=== PATIENT | male | born 1980 | race Two or more races ===

== ENCOUNTER 2024-06-27 12:47 | Emergency (ER) | payer MEDICAID, SELFPAY ==
--- NOTE | 2024-06-27 12:52 | EKG_ITS ---
[facility] Test Date: 2024-06-27 Pat Name: COLE MONROE Department: Room: - Gender: Male Collections Representative: : 1980 Requested By: Joe Nick Order Number: [id number] Reading MD: Joe Nick Measurements Intervals [place] Rate: 66 P: 49 MO: 144 QRS: 3 QRSD: 71 T: 32 QT: 393 QTc: 414 Interpretive Statements SINUS RHYTHM POSSIBLE RIGHT VENTRICULAR CONDUCTION DELAY [RSR (QR) IN V1/V2] No previous ECG available for comparison /store/S0/[id number].pdf
[2024-06-27 12:56] VITALS: BP 128/88; PULSE 84; RESP 20; TEMP 36.1; O2SAT 96
--- NOTE | 2024-06-27 12:57 | XR_ITS ---
Examination: CT brain head without contrast. 2-D sagittal coronal reconstructions Date and time of exam:June 27, 2024 1350 hours INDICATIONS: Onset left-sided facial numbness today CTDI: vol (mGy):50.3 DLP: (mGycm):962 Technique: Multiple CT axial sections of the brain have been obtained, 5 mm slice thickness. Contrast has not been administered. 2-D sagittal, coronal reconstructions have been obtained Low dose protocols were performed. One or more of the following dose reduction techniques were used; automated exposure control, adjustment of the mA and/or KV according to patient size, use of iterative reconstruction technique. Findings: No significant ventricular enlargement. Intra-axial or extra-axial hemorrhage density is not seen. No mass effect or midline shift Basal cisterns are not remarkable. Fourth ventricle is midline. Cranial vault intact. Impression: Negative for acute hemorrhage, mass effect or midline shift As clinically warranted, MRI brain without contrast follow-up would best assess for demyelinating disease, acute ischemic change
[2024-06-27 13:24] LABS: Basophils # (Auto) 0.1 Thou/mm3 (0.0-0.2); Basophils % (Auto) 1 % (0-2.5); Eosinophils # (Auto) 0.3 Thou/mm3 (0.0-0.5); Eosinophils % (Auto) 2 % (0-10); Hematocrit 45.4 % (41.0-53.0); Hemoglobin 15.2 g/dL (13.5-16.0); Immature Granulocytes % (Auto) 1 % (0-0); Immature Granulocytes Auto 0.12 Thou/mm3 (0.00-0.00); Lymphocytes # (Auto) 3.4 Thou/mm3 (1.0-4.8); Lymphocytes % (Auto) 30 % (10-50); Mean Corpuscular HGB Conc 33.5 g/dl (31.0-37.0); Mean Corpuscular Hemoglobin 28.4 pg (25.0-35.0); Mean Corpuscular Volume 85 fL (80-100); Monocytes # (Auto) 0.8 Thou/mm3 (0.0-0.8); Monocytes % (Auto) 7 % (0-12); Neutrophils # (Auto) 6.5 Thou/mm3 (1.8-7.7); Neutrophils % (Auto) 58 % (37-80); Nucleated Red Blood Cell % 0 /100 WBC (0); Platelet Count 236 Thou/mm3 (140-440); RDW Standard Deviation 40.9 fL (35.1-43.9); Red Blood Count 5.36 Miln/mm3 (4.50-5.90); White Blood Count 11.2 Thou/mm3 (3.8-10.6)
[2024-06-27 13:39] LABS: Alanine Aminotransferase 75 U/L (10-49); Albumin, Serum 4.4 gm/dL (3.5-5.0); Albumin/Globulin Ratio 1.8 (1.2-2.2); Alkaline Phosphatase 88 U/L (46-116); Anion Gap 8 (7-16); Aspartate Amino Transferase 37 U/L (0-34); BUN/Creatinine Ratio 24 Ratio (12-20); Bilirubin,Total 0.4 mg/dL (0.3-1.2); Blood Urea Nitrogen 22 mg/dL (9-23); Calcium 9.9 mg/dL (8.3-10.6); Calcium (Corrected) 9.9 mg/dL (8.5-10.1); Carbon Dioxide 26.5 mMol/L (20.0-31.0); Chloride 105 mMol/L (98-107); Creatinine (Component) 0.9 mg/dL (0.6-1.3); Globulin 2.4 gm/dL (2.3-3.5); Glucose 119 mg/dL (74-106); Osmolality,Calculated 281 (275-295); Potassium 4.4 mMol/L (3.4-5.1); Sodium 139 mMol/L (136-145); Total Protein 6.8 gm/dL (5.7-8.2); Troponin I < 0.002 ng/mL (0.0-0.045); eGFR > 60 See Note
[2024-06-27] MEDS: IBUPROFEN TAB 400 MG TABLET 800 MG PO (14:30)
[2024-06-27] MEDS: LIDOCAINE 5% 1 PATCH 2 PATCH TOP (14:30)
--- NOTE | 2024-06-27 15:05 | PD.EDCHEST ---
ED Chest Pain RME/HPI General Chief Complaint: Chest Pain Stated Complaint: CHEST PAIN, SOB, LEFT SIDED NUMBNESS, JEFFERS, N/V Time Seen by Provider: 06/27/24 12:50 Arrival date/time: 06/27/24 12:47 This section includes all my notes and documentations, including HPI, PE, and ED course. Joe Snow MD HPI: 44-year-old male here to be evaluated with sudden chest pain just prior to arrival after having a heated and mild argument with another resident at a local rehabilitation facility. He also reports severe headache and numbness and tingling. No speech or visual impairment. No loss of power in arms or legs. No other complaints. ROS: All negative except as documented in HPI. Physical Exam: General: Alert and oriented. Appears anxious. Eyes: Conjunctivae and lids clear. EOMI. PERRL. ENT: No nasal congestion. Pharynx normal. Tympanic membrane normal bilaterally. Neck: Supple. No carotid bruit. No JVD. Heart: RRR. Lungs: No respiratory distress. Good air movement. No rhonchi, wheezing, rales. Chest: Palpation of the anterior chest reproduces his pain. Abdomen: Soft and nontender. Legs: No clubbing, cyanosis, edema. Skin: Warm and dry. Neuro: Alert and oriented X 3. Cranial Nerves II-XII grossly intact. No peripheral motor deficits. I reviewed all diagnostic test results. My interpretation of the EKG is sinus rhythm with no acute ST?T changes. My review of the head CT report is no acute findings. Blood tests unremarkable, including negative troponin. At this point, diagnoses include stress/anxiety reaction. Treatment here included ibuprofen. Significant improvement noted. Recommended more outpatient cardiac workup. Based on my best medical judgment, made decision no further evaluation or treatment indicated at this time. Patient understands and agrees to the discharge instructions customized and printed, see below. Discharge instructions from Dr. Snow: 1. After extensive evaluation, there is no life-threatening condition.? Such as stroke or brain tumor or heart attack. 2. Your symptoms may be due to anxiety/stress reaction. 3. Take ibuprofen/Tylenol as needed. 4. See a private doctor on 06/28/2024. To make sure there is no serious underlying heart condition, ask to help you get more tests for your heart that cannot be done here in the ER.? Such as Holter Monitor (cardiac monitoring at home from a day to even a month), heart stress test (on treadmill or with medication), echocardiogram (imaging of your heart structures), heart catherization (checking for blockages in your heart arteries), and a referral to see a Java Web Services Developer. 5. Seek immediate medical care with worsening or with any concerns.?? Joe Snow MD Related Data Allergies Allergy/AdvReac Type Severity Reaction Status Date / Time No Known Allergies Allergy Verified 06/27/24 12:50 Course Quality Measures none Orders Category Date Time Status EKG (ED ONLY) *Do not use* NOW Care 06/27/24 12:[address] head/brain wo con Stat Exams 06/27/24 12:57 Completed EKG (ED Only) Stat Exams 06/27/24 12:52 Draft CBC Stat Lab 06/27/24 13:02 Completed CMP [Comprehensive Metabolic Panel] Stat Lab 06/27/24 13:02 Completed Magnesium Stat Lab 06/27/24 13:02 Completed Troponin I Stat Lab 06/27/24 13:02 Completed Ibuprofen Tab [Motrin Tab] Med 06/27/24 12:56 Discontinued 800 mg PO X1 ONE Lidocaine 5% Patch Med 06/27/24 12:56 Discontinued 2 patch TOP X1 ONE Vital Signs Vital signs: Vital Signs Temperature 97.0 F 06/27/24 12:56 Pulse Rate 84 06/27/24 12:56 Respiratory Rate 20 06/27/24 12:56 Blood Pressure 128/88 H 06/27/24 12:56 Pulse Oximetry (%) 96 06/27/24 12:56 Oxygen Delivery Method Room Air 06/27/24 12:56 Chest Pain Patient data External records reviewed:: None Clinical information provided by:: patient Social determinants that could affect healthcare access:: substance use Patient has the following chronic illnesses:: Substance abuse How is presenting disease/condition affected by chronic disease/condition?: exacerbated by Evaluation data The following diagnostics were reviewed and interpreted by me:: lab results, radiology exam(s) and EKG tracing(s) Lab and/or radiology exams considered but not ordered:: None Interpretation Summary: Anxiety/stress reaction Medications / Prescriptions Medications or Prescriptions considered but not ordered:: None Medication administrations:: Medication Administration History Discontinued Medications Ibuprofen (Ibuprofen Tab 400 Mg Tablet) 800 mg PO X1 ONE Stop: 06/27/24 12:57 Last Admin: 06/27/24 14:30 Dose: 800 mg Documented By: NATE Lidocaine (Lidocaine 5% 1 Patch) 2 patch TOP X1 ONE Stop: 06/27/24 12:57 Last Admin: 06/27/24 14:30 Dose: 2 patch Documented By: NATE Ibuprofen Consultations Consultation(s) initiated? (list below): No Diagnosis Chest Pain Differential Diagnosis: stable angina, unstable angina pectoris, atypical chest pain, st elevation myocardial infarction, costochondritis and other (Anxiety, stress) Most likely diagnosis given after review of the tests above:: Anxiety/stress reaction Admission Indicated Admission indicated?: not indicated Explain why admission is indicated or not indicated:: Admission criteria not met Admission Request Was there a request for admission?: No Disposition Plan Disposition Plan: Discharge Discharge Attestation Discharge Attestation: The patient and all family members were given an opportunity to ask questions and understood the discharge instructions. Discharge instructions specifically effects, indications for sooner follow up or return to the emergency department, and the expected course of current diagnosis. Patient condition: Stable Discharge Plan Plan Patient Disposition: HOME (Self Care) Problem List Clinical Impression: Stress reaction Patient/Caregiver Discharge Instructions Discharge Activity: activity as tolerated Education Materials: ED Anxiety Reaction Additional Instructions: Discharge instructions from Dr. Snow: 1. After extensive evaluation, there is no life-threatening condition.? Such as stroke or brain tumor or heart attack. 2. Your symptoms may be due to anxiety/stress reaction. 3. Take ibuprofen/Tylenol as needed. 4. See a private doctor on 06/28/2024. To make sure there is no serious underlying heart condition, ask to help you get more tests for your heart that cannot be done here in the ER.? Such as Holter Monitor (cardiac monitoring at home from a day to even a month), heart stress test (on treadmill or with medication), echocardiogram (imaging of your heart structures), heart catherization (checking for blockages in your heart arteries), and a referral to see a Java Web Services Developer. 5. Seek immediate medical care with worsening or with any concerns.?? Print Language: Yakut Stand Alone Forms: Kamla Award Info., Patient Portal Info Letter
== END 2024-06-27 14:58 | disposition home or self-care (01) ==
LOC: SERX 15:08
PROVIDERS: Emergency Provider Emergency Medicine; PCP Family Medicine
DX: F43.9 Reaction to severe stress, unspecified (principal); R20.0 Anesthesia of skin; R94.31 Abnormal electrocardiogram [ECG] [EKG]
CPT/HCPCS: 36415; 70450; 80053; 83735; 84484; 85025; 93005; 99284; Z7610; A9270

== ENCOUNTER 2024-06-29 09:34 | Inpatient (IN) | payer MEDICAID, SELFPAY ==
[2024-06-29] VITALS (8 sets, daily range): BP systolic 107–121; BP diastolic 57–90; PULSE 54–76; RESP 15–98; TEMP 36.3–36.8; O2SAT 96–97; BMI 29.4
--- NOTE | 2024-06-29 09:43 | EDNOTE_ITS ---
Neuro Symptoms Deficit-RME/HPI General Chief Complaint: General Adult/Misc Complain Stated Complaint: numbness left side of body, dizzy, headache, Time Seen by Provider: 06/29/24 09:44 Arrival date/time: 06/29/24 09:34 RME / HPI RME / HPI Narrative: This section includes all my notes and documentations, including HPI, PE, and ED course.? Joe Snow MD HPI: 44 year old male with history of hypertension presents to the ED for evaluation of left sided numbness and weakness beginning this morning. Patient reports he was evaluated here yesterday for headache and numbness. However, reports in the last 20 minutes developed left facial numbness and left upper extremity weakness. Denies falls or injuries. No other complaints reported. ROS: All negative except as documented in HPI. Physical Exam: General:? Alert and oriented.? No acute distress when remaining still.?? Eyes:? Conjunctivae and lids clear.? PERRL. EOMI. ENT:? No nasal congestion.? Neck:? Supple.? Heart:? RRR.? Lungs:? No respiratory distress.? Good air movement.? No rhonchi, wheezing, rales.?? Abdomen:? Soft and nontender.?? Legs:? No clubbing, cyanosis, edema.? Skin:? Warm and dry.?? Neuro:? Alert and oriented X 3.??CN 2-12 grossly normal. No obvious peripheral motor deficits on my exam. I reviewed all diagnostic test results. My interpretation of the EKG is?sinus rhythm (63 bpm) with nonspecific ST-T changes. My interpretation of the chest x-ray is no acute findings. My review of the Head CT report is negative for acute hemorrhage, mass effect or midline shift. My review of the Head/neck CTA report shows no significant neck arterial stenoses, no cerebral large vessel arterial occlusions or thrombus. Blood tests and urine tests?unremarkable. At this point, diagnoses include?stroke-like symptoms. Treatment here included?ASA. Remained stable. I discussed the case with teleneurologist Dr. Delgado and our hospitalist.? About the presentation and exam and diagnostics and treatments here.? And need of further care in the hospital.? Will accept the patient. Joe Snow MD Related Data Previous Rx's ?Medication ?Instructions ?Recorded acetaminophen 325 mg tablet 650 mg (2 x 325 mg) PO Q6H PRN 06/30/24 pain 30 days #60 tabs atorvastatin 80 mg tablet 80 mg PO HS 30 days #30 tabs 06/30/24 diphenhydramine HCl 25 mg capsule 25 mg PO Q6H PRN Hea dache 10 days 06/30/24 (Banophen) #30 caps prochlorperazine maleate 5 mg 10 mg (2 x 5 mg) PO Q6H PRN 06/30/24 tablet Headache 10 days #30 tabs duloxetine 30 mg capsule,delayed 30 mg PO QDAY 30 days #30 caps 07/01/24 release (Cymbalta) Allergies Allergy/AdvReac Type Severity Reaction Status Date / Time No Known Allergies Allergy Verified 06/29/24 09:36 Review of Systems Review of Systems Systems Reviewed: All systems reviewed, normal except as documented Past Medical History Past Medical History CARDIAC: Positive Hypertension; Negative Congestive Heart Failure RESPIRATORY: Negative Chronic Obstructive Pulmonary Disease (COPD) GENITOURINARY: Negative Renal Disease MUSCULOSKELETAL: Positive Musculoskeletal Disorders (right wrist/hand fracture) ENDOCRINE: Negative Diabetes Mellitus Type 1 or Diabetes Mellitus Type 2 Social History SMOKING STATUS: Current every day smoker ED Exam Narrative Physical exam: As noted in HPI Course Quality Measures Suspected type of Stroke: Non Acute Last know well: unknown Tenecteplase given: Reason(s) TPA not given: Outside the time window not given stroke Orders Category Date Time Status Bedside Blood Glucose NOW Care 06/29/24 09:44 Completed COVID-19 Screening Questionnaire NOW Care 06/29/24 10:51 Completed Motor Equipment Sergeant NOW Care 06/29/24 09:44 Completed Continuous Pulse Oximetry NOW Care 06/29/24 09:44 Completed Decision to Admit X1 Care 06/29/24 10:51 Completed EKG (ED ONLY) *Do not use* NOW Care 06/29/24 09:44 Completed In and Out Catheter NEEDED Care 06/29/24 09:44 Completed Insert IV NOW Care 06/29/24 09:44 Completed NIH Stroke Scale now Care 06/29/24 09:44 Completed NPO NOW Care 06/29/24 09:44 Completed Nurse Swallow Screen x1 Care 06/29/24 09:44 Completed Consult to Neurology / Tele-Neurology Routine Cons 06/29/24 09:[address] angio stroke protocol Stat Exams 06/29/24 09:[address] stroke protocol Stat Exams 06/29/24 09:44 Completed EKG (ED Only) Stat Exams 06/29/24 09:44 Draft XR chest 1V portable Stat Exams 06/29/24 09:44 Completed Alcohol, Blood Medical Stat Lab 06/29/24 09:52 Completed Arterial Blood Gas Stat Lab 06/29/24 10:36 Completed CBC Stat Lab 06/29/24 09:52 Completed Comprehensive Metabolic Panel Stat Lab 06/29/24 09:52 Completed Drug Screen,Urine Stat Lab 06/29/24 10:30 Completed Magnesium Stat Lab 06/29/24 09:52 Completed Partial Thromboplastin Time Stat Lab 06/29/24 09:50 Completed Prothrombin Time with INR Stat Lab 06/29/24 09:50 Completed Troponin I Stat Lab 06/29/24 09:52 Completed Labetalol IV [Trandate IV] Med 06/29/24 09:44 Discontinued 10 mg IV Q15M PRN Ondansetron Inj [Zofran Inj] Med 06/29/24 09:44 Discontinued 4 mg IV Q4HR PRN Sodium Chloride 0.9% 1000 ml [Ns] 1,000 ml Med 06/29/24 09:45 Discontinued IV Q10H Oxygen Delivery NOW RT 06/29/24 09:44 Completed Vital Signs Vital signs: Vital Signs Temperature 97.8 F 06/29/24 10:22 Pulse Rate 76 06/29/24 10:22 Respiratory Rate 19 06/29/24 10:22 Blood Pressure 119/86 H 06/29/24 10:22 Pulse Oximetry (%) 96 06/29/24 10:22 Oxygen Delivery Method Room Air 06/29/24 10:22 Pulse ox is 96% on room air which is adequate. Neuro Symptoms / Deficit MDM Narrative MDM Narrative:: Jocelyn Zavala am scribing for and in the presence of Dr. Snow. Patient data External records reviewed:: [facility] previous records (I reviewed ED visit on 06/27/2024) Clinical information provided by:: patient Social determinants that could affect healthcare access:: substance use Patient has the following chronic illnesses:: substance use hypertension How is presenting disease/condition affected by chronic disease/condition?: uneffected by Evaluation data The following diagnostics were reviewed and interpreted by me:: lab results, radiology exam(s) and EKG tracing(s) (My interpretation of the EKG is: Sinus rhythm (63 bpm) with nonspecific ST-T changes. Joe Snow MD) Lab and/or radiology exams considered but not ordered:: None Interpretation Summary: Head CT report reviewed and is negative for acute hemorrhage, mass effect or midline shift. Head/neck CTA report reviewed and shows no significant neck arterial stenoses, n o cerebral large vessel arterial occlusions or thrombus. Medications / Prescriptions Medications or Prescriptions considered but not ordered:: None Medication administrations:: Medication Administration History Discontinued Medications Acetaminophen (Acetaminophen 325 Mg Tablet) 650 mg PO Q6H PRN PRN Reason: Fever >101.5 Stop: 07/29/24 11:40 Acetaminophen (Acetaminophen 325 Mg Tablet) 650 mg PO Q6H PRN PRN Reason: PAIN SCALE 1-3 (mild Stop: 07/29/24 11:40 Last Admin: 07/04/24 15:04 Dose: 650 mg Documented By: Admin: 07/04/24 08:11 Dose: 650 mg Documented By: Admin: 07/04/24 02:07 Dose: 650 mg Documented By: Admin: 06/30/24 13:54 Dose: 650 mg Documented By: Admin: 06/29/24 23:25 Dose: 650 mg Documented By: SUSI Hydrocodone Bitart/Acetaminophen (Hydrocodone/Apap 5/325 Tablet) 1 tab PO Q6HR PRN PRN Reason: PAIN SCALE 4-10(Mod-Sev Stop: 07/05/24 23:42 Last Admin: 07/05/24 09:53 Dose: 1 tab Documented By: Admin: 07/05/24 02:23 Dose: 1 tab Documented By: Admin: 07/03/24 20:04 Dose: 1 tab Documented By: Admin: 07/03/24 11:00 Dose: 1 tab Documented By: Admin: 07/03/24 04:03 Dose: 1 tab Documented By: Admin: 07/02/24 22:13 Dose: 1 tab Documented By: Admin: 07/02/24 16:19 Dose: 1 tab Documented By: Admin: 07/02/24 05:03 Dose: 1 tab Documented By: Admin: 07/01/24 21:42 Dose: 1 tab Documented By: Admin: 07/01/24 08:39 Dose: 1 tab Documented By: Admin: 07/01/24 00:12 Dose: 1 tab Documented By: SUSI Aspirin (Aspirin 325 Mg Tablet) 325 mg PO X1 ONE Stop: 06/29/24 11:49 Last Admin: 06/29/24 13:15 Dose: 325 mg Documented By: HARDIK Aspirin (Aspirin Ec 81 Mg Tabec) 81 mg PO QDAY TINO Stop: 07/30/24 08:59 Last Admin: 07/05/24 08:47 Dose: 81 mg Documented By: Admin: 07/04/24 08:12 Dose: 81 mg Documented By: Admin: 07/03/24 09:02 Dose: 81 mg Documented By: Admin: 07/02/24 08:21 Dose: 81 mg Documented By: Admin: 07/01/24 08:39 Dose: 81 mg Documented By: Admin: 06/30/24 08:47 Dose: 81 mg Documented By: YAO Atorvastatin Calcium (Atorvastatin Calcium 10 Mg Tablet) 80 mg PO HS [facility] Stop: 07/29/24 20:59 Last Admin: 07/03/24 20:04 Dose: 80 mg Documented By: Admin: 07/02/24 22:00 Dose: 80 mg Documented By: Admin: 07/01/24 21:41 Dose: 80 mg Documented By: Admin: 06/30/24 20:21 Dose: 80 mg Documented By: SUSI Comments: [id number] Admin: 06/29/24 21:30 Dose: 80 mg Documented By: SUSI Atorvastatin Calcium (Atorvastatin Calcium 20 Mg Tablet) 80 mg PO HS [facility] Stop: 07/29/24 20:59 Last Admin: 07/04/24 21:22 Dose: 80 mg Documented By: SUSI Clopidogrel Bisulfate (Clopidogrel Bisulfate 75 Mg Tablet) 300 mg PO X1 ONE Stop: 07/03/24 16:39 Last Admin: 07/03/24 17:05 Dose: 300 mg Documented By: STANLEY Clopidogrel Bisulfate (Clopidogrel Bisulfate 75 Mg Tablet) 75 mg PO QDAY TINO Stop: 08/03/24 08:59 Last Admin: 07/05/24 08:47 Dose: 75 mg Documented By: Admin: 07/04/24 08:12 Dose: 75 mg Documented By: ANJALI Diphenhydramine HCl (Diphenhydramine 25 Mg Capsule) 25 mg PO Q6H PRN PRN Reason: Headache Stop: 07/29/24 12:14 Last Admin: 06/29/24 23:29 Dose: 25 mg Documented By: SUSI Heparin Sodium (Porcine) (Heparin Sod Inj 5000 Unit/Ml Vial) 5,000 unit SC Q8HR TINO Stop: 07/14/24 05:59 Last Admin: 07/01/24 13:41 Dose: 5,000 unit Documented By: KS Co-signed By: RADHA Admin: 07/01/24 05:30 Dose: 5,000 unit Documented By: SUSI Co-signed By: ERIN Admin: 06/30/24 21:02 Dose: 5,000 unit Documented By: SUSI Co-signed By: Admin: 06/30/24 13:55 Dose: 5,000 unit Documented By: GE Co-signed By: FLORENCIO Admin: 06/30/24 05:28 Dose: 5,000 unit Documented By: SUSI Co-signed By: Heparin Sodium (Porcine) (Heparin Sod Inj 5000 Unit/Ml Vial) 5,000 unit SC Q8HR TINO Stop: 07/14/24 05:59 Last Admin: 07/05/24 05:26 Dose: 5,000 unit Documented By: AMARI Co-signed By: ERIN Admin: 07/04/24 21:23 Dose: 5,000 unit Documented By: SUSI Co-signed By: ERIN Admin: 07/04/24 15:04 Dose: 5,000 unit Documented By: ANJALI Co-signed By: ANGELO Admin: 07/04/24 05:05 Dose: 5,000 unit Documented By: JENNIE Co-signed By: WENDY Admin: 07/03/24 21:45 Dose: 5,000 unit Documented By: JENNIE Co-signed By: MAYELA Admin: 07/03/24 13:23 Dose: 5,000 unit Documented By: STANLEY Co-signed By: EFRAÍN Admin: 07/03/24 05:03 Dose: 5,000 unit Documented By: YONATHAN Co-signed By: LEONID Admin: 07/02/24 22:17 Dose: 5,000 unit Documented By: YONATHAN Co-signed By: LEONID Admin: 07/02/24 13:33 Dose: 5,000 unit Documented By: PP Co-signed By: STANLEY Admin: 07/02/24 05:04 Dose: 5,000 unit Documented By: YONATHAN Co-signed By: ZORA Admin: 07/01/24 21:42 Dose: 5,000 unit Documented By: YONATHAN Co-signed By: Sodium Chloride (Ns) 1,000 mls @ 100 mls/hr IV Q10H TINO Stop: 07/29/24 09:44 Last Admin: 06/30/24 21:01 Dose: Not Given Documented By: SUSI Non-Admin Reason: Discontinued Admin: 06/29/24 21:30 Dose: 100 mls/hr Documented By: Infusion: 06/29/24 21:30 Dose: Infused Documented By: Admin: 06/29/24 13:14 Dose: 100 mls/hr Documented By: HARDIK Magnesium Sulfate/Dextrose (Magnesium Sulfate Ivpb) 1 gm in 100 mls @ 100 mls/hr IV X1 ONE Stop: 06/29/24 13:13 Last Admin: 06/29/24 13:15 Dose: 100 mls/hr Documented By: HARDIK Ketorolac Tromethamine (Ketorolac Inj 30 Mg/Ml Vial) 30 mg IVP X1 ONE Stop: 06/30/24 18:42 Last Admin: 06/30/24 20:20 Dose: 30 mg Documented By: SUSI Labetalol HCl (Labetalol Inj 5 Mg/Ml Vial 20 Ml) 10 mg IV Q15M PRN PRN Reason: HYPER Labetalol HCl (Labetalol Inj 5 Mg/Ml Vial 20 Ml) 5 mg IV Q15M PRN PRN Reason: SBP>220 or DBP > 120. Ondansetron HCl (Ondansetron Inj 2 Mg/Ml Inj 2 Ml) 4 mg IV Q4HR PRN PRN Reason: NAUSEA OR VOMITING Stop: 07/29/24 09:43 Prochlorperazine Maleate (Prochlorperazine Maleate 5 Mg Tablet) 10 mg PO Q6H PRN PRN Reason: Headache Stop: 07/29/24 12:14 Last Admin: 06/29/24 23:36 Dose: 10 mg Documented By: SUSI Tramadol HCl (Tramadol Hcl 50 Mg Tablet) 50 mg PO X1 ONE Stop: 07/02/24 01:57 Last Admin: 07/02/24 02:08 Dose: 50 mg Documented By: YONATHAN Patient given IV fluids and ASA Consultations Consultation(s) initiated? (list below): Yes Consultation #1 (Physician, Specialty, Details): I spoke with teleneurologist Dr. Delgado as noted above. Time: 10:18 Consultation #2 (Physician, Specialty, Details): I spoke with resident Dr. Ivory working with Dr. Interiano as noted above. Time: 10:50 Diagnosis Neuro Differential Diagnosis: convulsions, delirium, subarachnoid hemorrhage, peripheral neuropathy, cerebrovascular accident, multiple sclerosis and transient cerebral ischemia Most likely diagnosis given after review of the tests above:: Stroke-like symptoms Admission Indicated Admission indicated?: indicated Explain why admission is indicated or not indicated:: Telehealth neurology recommended admission. Admission Request Was there a request for admission?: Yes Admission Attestation Admission request attestation: Discussed case with Hospitalist service regarding admission. Discussed patients ED course, exam findings, labs, and radiology results. The Hospitalist [agrees] to accept the patient for admission. Disposition Plan Disposition Plan: Admit Discharge Plan Plan Patient Disposition: Admit Acute Care w/in Hospital Disposition Comment: Acute rehab Problem List Clinical Impression: Stroke-like symptoms Patient/Caregiver Discharge Instructions Discharge Activity: as per physical therapy
--- NOTE | 2024-06-29 09:44 | XR_ITS ---
Examination: AP chest single view Technique one AP portable upright chest single view Exam date and time: June 29, 2024 1012 hours INDICATIONS: Onset numbness left side of the body today dizziness headaches shortness of breath FINDINGS: Normal heart size Lungs are clear. The osseous structures are intact IMPRESSION: No active disease
--- NOTE | 2024-06-29 09:44 | XR_ITS ---
Examination: CTA carotids with intravenous contrast CTA brain, head with intravenous contrast. 2-D sagittal, coronal reconstructions. 3-D reconstructions. Exam date and time: June 29, 2024 0957 hours INDICATIONS: Stroke alert, onset focal neurologic deficit beginning this morning, weakness CTDI: vol (mGy) 25.4 DLP: (mGycm) 460 Technique: Multiple CTA axial brain, head carotid images post intravenous contrast injection 75 cc, [id number]. 2-D sagittal, coronal reconstructions. 3-D reconstructions, 3-D post processing including vascular maximum intensity projection images. Low dose protocols were performed. One or more of the following dose reduction techniques were used; automated exposure control, adjustment of the mA and/or KV according to patient size, use of iterative reconstruction technique. Findings: No significant common carotid carotid bifurcation or internal carotid artery stenoses Dominant left vertebral artery with no critical stenoses No cerebral large vessel arterial occlusions, thrombus, dissection or cerebral aneurysm IMPRESSION: No significant neck arterial stenoses No cerebral large vessel arterial occlusions or thrombus
--- NOTE | 2024-06-29 09:44 | XR_ITS ---
Examination: CT brain head without contrast. 2-D sagittal coronal reconstructions Date and time of exam:June 29, 2024 0947 hours INDICATIONS: Left-sided body weakness beginning this morning CTDI: vol (mGy):49.6 DLP: (mGycm):912 Technique: Multiple CT axial sections of the brain have been obtained, 5 mm slice thickness. Contrast has not been administered. 2-D sagittal, coronal reconstructions have been obtained Low dose protocols were performed. One or more of the following dose reduction techniques were used; automated exposure control, adjustment of the mA and/or KV according to patient size, use of iterative reconstruction technique. Findings: No significant ventricular enlargement. Intra-axial or extra-axial hemorrhage density is not seen. No mass effect or midline shift Basal cisterns are not remarkable. Fourth ventricle is midline. Cranial vault intact. Impression: Negative for acute hemorrhage, mass effect or midline shift As clinically warranted, brain MRI MRA without contrast, stroke protocol, would best assess for demyelinating disease, acute ischemic change
--- NOTE | 2024-06-29 09:44 | EKG_ITS ---
[facility] Test Date: 2024-06-29 Pat Name: COLE MONROE Department: Room: - Gender: Male Director Systems: : 1980 Requested By: Joe Nick Order Number: [id number] Reading MD: Joe Nick Measurements Intervals [place] Rate: 63 P: 37 WY: 157 QRS: -19 QRSD: 70 T: 10 QT: 402 QTc: 413 Interpretive Statements SINUS RHYTHM POSSIBLE RIGHT VENTRICULAR CONDUCTION DELAY [RSR (QR) IN V1/V2] Compared to ECG 06/27/2024 14:10:50 No significant changes /store/S0/[id number].pdf
[2024-06-29 10:03] LABS: Basophils # (Auto) 0.1 Thou/mm3 (0.0-0.2); Basophils % (Auto) 1 % (0-2.5); Eosinophils # (Auto) 0.2 Thou/mm3 (0.0-0.5); Eosinophils % (Auto) 3 % (0-10); Hematocrit 45.7 % (41.0-53.0); Hemoglobin 15.3 g/dL (13.5-16.0); Immature Granulocytes % (Auto) 1 % (0-0); Immature Granulocytes Auto 0.09 Thou/mm3 (0.00-0.00); Lymphocytes % (Auto) 37 % (10-50); Mean Corpuscular HGB Conc 33.5 g/dl (31.0-37.0); Mean Corpuscular Volume 84 fL (80-100); Monocytes # (Auto) 0.6 Thou/mm3 (0.0-0.8); Monocytes % (Auto) 8 % (0-12); Neutrophils # (Auto) 4.1 Thou/mm3 (1.8-7.7); Neutrophils % (Auto) 51 % (37-80); Nucleated Red Blood Cell % 0 /100 WBC (0); Platelet Count 215 Thou/mm3 (140-440); RDW Standard Deviation 39.8 fL (35.1-43.9); Red Blood Count 5.47 Miln/mm3 (4.50-5.90); White Blood Count 8.1 Thou/mm3 (3.8-10.6)
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
[2024-06-29 10:23] LABS: Alanine Aminotransferase 68 U/L (10-49); Albumin, Serum 4.7 gm/dL (3.5-5.0); Albumin/Globulin Ratio 2.1 (1.2-2.2); Alcohol, Blood Medical < 10.0 mg/dL (0-10.0); Alkaline Phosphatase 92 U/L (46-116); Anion Gap 6 (7-16); Aspartate Amino Transferase 29 U/L (0-34); BUN/Creatinine Ratio 33 Ratio (12-20); Bilirubin,Total 0.4 mg/dL (0.3-1.2); Blood Urea Nitrogen 26 mg/dL (9-23); Calcium 9.9 mg/dL (8.3-10.6); Calcium (Corrected) 9.9 mg/dL (8.5-10.1); Carbon Dioxide 25.9 mMol/L (20.0-31.0); Chloride 106 mMol/L (98-107); Creatinine (Component) 0.8 mg/dL (0.6-1.3); Globulin 2.2 gm/dL (2.3-3.5); Glucose 100 mg/dL (74-106); Osmolality,Calculated 280 (275-295); Potassium 4.6 mMol/L (3.4-5.1); Sodium 138 mMol/L (136-145); Total Protein 6.9 gm/dL (5.7-8.2); Troponin I < 0.020 ng/mL (0.0-0.045); eGFR > 60 See Note
[2024-06-29 10:28] LABS: INR 0.9 (0.9-1.3); Partial Thromboplastin Time 24.5 Seconds (22.0-36.0); Prothrombin Time 10.4 Seconds (9.0-12.2)
[2024-06-29 10:41] LABS: Base Excess 0 (-3-3); HCO3 25 mEq/L (20-26); Inspired Oxygen, FIO2 21 %; O2 Saturation 98 % (91-98); PCO2 43 mmHg (32.0-48.0); PO2 89 mmHg (83-108); pH, Arterial 7.38 (7.35-7.45)
[2024-06-29 10:57] LABS: Allen Test Performed/OK; Puncture Site Left Radial
[2024-06-29 11:10] LABS: Amphetamine/Methamp Scrn,U Negative (Negative); Barbiturate Screen,Urine Negative (Negative); Benzodiazepines Screen,Urine Negative (Negative); Benzoylecgonine Screen, Ur Negative (Negative); Fentanyl Screen,Urine Negative (Negative); Opiate Screen,Urine Negative (Negative); THC Screen,Urine Negative (Negative)
--- NOTE | 2024-06-29 11:44 | ECHO_ITS ---
Transthoracic Echo Report Ht (in): 67 Wt (lb): 188 Exam Location: Echo Lab Status: Emergency Mail Handler Equipment Operator: Meghan Roy Indications: Procedure Performed: BP: 119 / 86 HR: 76 Technical Quality: Very technically difficult study MEASUREMENTS (Male / Female) Normal Values 2D ECHO LV Diastolic Diameter PLAX 5.2 cm 4.2 - 5.9 / 3.9 - 5.3 cm LV Systolic Diameter PLAX 3.2 cm IVS Diastolic Thickness 0.6 cm 0.6 - 1.0 / 0.6 - 0.9 cm LVPW Diastolic Thickness 0.9 cm 0.6 - 1.0 / 0.6 - 0.9 cm LV Relative Wall Thickness 0.3 LVOT Diameter 1.9 cm Aortic Root Diameter 2.4 cm LA Volume Index 14.0 cm?/m? 16 - 28 cm?/m? M-MODE AV Cusp Separation MM 2.1 cm DOPPLER AV Peak Velocity 121.0 cm/s AV Peak Gradient 5.9 mmHg AV Mean Gradient 3.0 mmHg AV Velocity Time Integral 21.6 cm LVOT Peak Velocity 124.0 cm/s LVOT Peak Gradient 6.2 mmHg LVOT Velocity Time Integral 22.9 cm LVOT Cardiac Index 2429.6 cm?/min?m? AV Area Cont Eq vti 3.0 cm? AV Area Cont Eq pk 2.9 cm? MV Area PHT 3.5 cm? Mitral E Point Velocity 66.7 cm/s Mitral A Point Velocity 67.9 cm/s Mitral E to A Ratio 1.0 LV E' Lateral Velocity 12.6 cm/s Mitral E to LV E' Lateral Ratio 5.3 LV E' Septal Velocity 8.8 cm/s Mitral E to LV E' Septal Ratio 7.6 TR Peak Velocity 201.0 cm/s TR Peak Gradient 16.2 mmHg FINDINGS Left Ventricle Normal left ventricular size, wall thickness, systolic function with no obvious regional wall motion abnormalities. Normal left ventricular diastolic filling pattern for age. The ejection fraction is visually estimated at 65%. Right Ventricle The right ventricle is normal in size and systolic function. Left Atrium The left atrium is normal by two-dimensional, color flow and Doppler imaging with no structural abnormalities, no thrombus formation present. Right Atrium The right atrium is normal by two-dimensional imaging, color flow and Doppler imaging with no structural abnormalities, no thrombus formation present. Atrial Septum The interatrial septum appears normal with no evidence of a shunt. Aorta The aorta is normal by two-dimensional, color flow and Doppler interrogation. Mitral Valve The mitral valve is normal by two-dimensional, color flow and Doppler interrogation. There is no significant mitral valve regurgitation, stenosis or prolapse. Aortic Valve The aortic valve is trileaflet and normal by two-dimensional, color flow and Doppler interrogation. There is no significant aortic valve regurgitation. Tricuspid Valve The tricuspid valve is normal by two-dimensional, color flow and Doppler interrogation. There is no significant tricuspid valve regurgitation. Pulmonic Valve The pulmonic valve is not well visualized. There is no significant pulmonic valve regurgitation. Vessels The pulmonary artery appears normal. The inferior vena cava pulmonary and hepatic veins appear normal. Pericardium The pericardium is normal by two-dimensional imaging. There is no significant pericardial effusion. CONCLUSIONS Indication: R/O CVA with bubble study. Negative bubble study. Normal left ventricular size and function. Approximate EF is 65%. RV is normal in size and systolic function. Carolina Reed (Electronically Signed) Final Date: 01 July 2024 09:45
[2024-06-29] MEDS: SODIUM CHLORIDE 0.9% 1000 ML 1,000 ML 100 ML IV ×2 (13:14→21:30)
[2024-06-29] MEDS: Aspirin 325 MG TABLET PO (13:15)
[2024-06-29] MEDS: Magnesium Sulfate 1 gm Ivpb 1 GM/100 ML BAG IV (13:15)
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
--- NOTE | 2024-06-29 19:26 | PC.NURSE ---
CONTACTS: BROTHER LINDA.Alessio ; KEVIN JESUS
[2024-06-29] MEDS: ATORVASTATIN CALCIUM 10 MG TABLET 80 MG PO (21:30)
[2024-06-29] MEDS: ACETAMINOPHEN 325 MG TABLET 650 MG PO (23:25)
[2024-06-29] MEDS: DiphenhydrAMINE 25 MG CAPSULE PO (23:29)
[2024-06-29] MEDS: PROCHLORPERAZINE MALEATE 5 MG TABLET 10 MG PO (23:36)
[2024-06-30] VITALS (8 sets, daily range): BP systolic 112–123; BP diastolic 66–87; PULSE 56–97; RESP 15–95; TEMP 36.1–36.4; O2SAT 92–100; BMI 29.7
--- NOTE | 2024-06-30 | XR_ITS ---
Examinations: MRI Brain without intravenous contrast. MRA brain without intravenous contrast. MRA carotids without intravenous contrast 3-D vascular reconstructions Date and time of exam: June 30, 2024 0918 hours INDICATIONS: Onset left-sided body weakness diminished vision in the left side today Technique: Multiple axial and sagittal images of the brain have been obtained MRA brain carotid images without contrast obtained, including 3-D postprocessing, vascular maximum intensity projection images Findings: Sellaturcica is not enlarged. The optic chiasm and infundibular stalk are not remarkable. Prepontine and interpeduncular cisterns are not enlarged. No localized enlargement of the medulla or coco. Fourth ventricle and cerebellar tonsils normal in position. Subacute hemorrhage is not seen. Fourth ventricle is midline. Mass in the cerebellopontine angle region is not evident. 7th and 8th nerve complexes exhibits symmetry. Globes are symmetrical with no retro-orbital mass. Increased white matter signal evident numerous punctate foci throughout the white matter Diffusion-weighted images demonstrate no focus of restricted diffusion Mass-effect upon the ventricular system is not identified. MRA carotid images no significant carotid stenoses. MRA brain images no cerebral large vessel occlusions Impression: Negative for acute hemorrhage mass effect or midline shift No acute infarct Multiple punctate foci increased signal throughout the cerebral white matter, demyelinating disease pattern
--- NOTE | 2024-06-30 | XR_ITS ---
Examination: MRI cervical spine, without intravenous contrast. MRI cervical spine , with intravenous contrast. Exam date and time: December 28, 2024 0947 hours INDICATIONS: Neck pain radiating to the left arm left arm weakness today Technique: Multiple axial, sagittal and coronal images of the cervical spine have been obtained with the Siemens high-resolution 1.5 [place] MRI scanner. Images obtained included T2 weighted fat suppressed sagittal sections, TR 3500, TE 46, T2 weighted coronal fat suppressed images, TR 3050, TE 84, T2-weighted transverse fat suppressed images, TR 30-60, TE 63, proton density transverse images, TR 4720, TE 46, and T1 weighted coronal images, TR 560, TE 13. Axial, sagittal and coronal images are obtained post intravenous injection 17 cc gadolinium. Findings: Adequate alignment cervical vertebral bodies No cervical fracture No focal cervical disc protrusion No localized enlargement cervical cord Postcontrast images demonstrate no abnormal osseous epidural or cervical cord enhancement There is mild enhancement in the soft tissue around the posterior spinous processes C7-T1 T2-T3, clinical correlation advised IMPRESSION: No cervical fracture No cervical disc protrusion No cervical abnormal osseous epidural or cord enhancement There is mild enhancement in the soft tissue around the posterior spinous processes C7, T1, T2, T3, consider CT chest with intravenous contrast follow-up
[2024-06-30] MEDS: HEPARIN SOD INJ 5000 UNIT/ML VIAL SC ×3 (05:28→21:02)
[2024-06-30 05:56] LABS: Basophils # (Auto) 0.1 Thou/mm3 (0.0-0.2); Basophils % (Auto) 1 % (0-2.5); Eosinophils # (Auto) 0.3 Thou/mm3 (0.0-0.5); Eosinophils % (Auto) 4 % (0-10); Hematocrit 45.1 % (41.0-53.0); Hemoglobin 14.8 g/dL (13.5-16.0); Immature Granulocytes % (Auto) 1 % (0-0); Immature Granulocytes Auto 0.09 Thou/mm3 (0.00-0.00); Lymphocytes # (Auto) 3.1 Thou/mm3 (1.0-4.8); Lymphocytes % (Auto) 40 % (10-50); Mean Corpuscular HGB Conc 32.8 g/dl (31.0-37.0); Mean Corpuscular Hemoglobin 28.2 pg (25.0-35.0); Mean Corpuscular Volume 86 fL (80-100); Monocytes # (Auto) 0.7 Thou/mm3 (0.0-0.8); Monocytes % (Auto) 9 % (0-12); Neutrophils # (Auto) 3.4 Thou/mm3 (1.8-7.7); Neutrophils % (Auto) 45 % (37-80); Nucleated Red Blood Cell % 0 /100 WBC (0); Platelet Count 210 Thou/mm3 (140-440); RDW Standard Deviation 40.8 fL (35.1-43.9); Red Blood Count 5.25 Miln/mm3 (4.50-5.90); White Blood Count 7.6 Thou/mm3 (3.8-10.6)
[2024-06-30 06:35] LABS: Glucose Estimated Average 105 mg/dL (80-131); Hemoglobin A1C 5.3 % Hgb (4.8-6.0)
[2024-06-30 06:40] LABS: Alanine Aminotransferase 61 U/L (10-49); Albumin, Serum 3.9 gm/dL (3.5-5.0); Albumin/Globulin Ratio 1.7 (1.2-2.2); Alkaline Phosphatase 83 U/L (46-116); Anion Gap 6 (7-16); Aspartate Amino Transferase 24 U/L (0-34); BUN/Creatinine Ratio 29 Ratio (12-20); Bilirubin,Total 0.4 mg/dL (0.3-1.2); Blood Urea Nitrogen 20 mg/dL (9-23); Calcium 9.4 mg/dL (8.3-10.6); Calcium (Corrected) 9.5 mg/dL (8.5-10.1); Carbon Dioxide 24.8 mMol/L (20.0-31.0); Cardiac Risk Estimate 4.4 RATIO (4.0-6.7); Chloride 105 mMol/L (98-107); Cholesterol 218 mg/dL (132-200); Creatinine (Component) 0.7 mg/dL (0.6-1.3); Estimated Creatinine Clearance 142.6 mL/min (>60); Globulin 2.3 gm/dL (2.3-3.5); Glucose 94 mg/dL (74-106); HDL Cholesterol 50 mg/dL (40-60); LDL Cholesterol,Calculated 135 mg/dL (0-130); Magnesium 1.8 mg/dL (1.6-2.6); Osmolality,Calculated 274 (275-295); Phosphorous 4.1 mg/dL (2.4-5.1); Potassium 4.2 mMol/L (3.4-5.1); Sodium 136 mMol/L (136-145); Total Protein 6.2 gm/dL (5.7-8.2); Triglycerides 163 mg/dL (30-150); eGFR > 60 See Note
[2024-06-30] MEDS: ASPIRIN EC 81 MG TABEC PO (08:47)
[2024-06-30] MEDS: ACETAMINOPHEN 325 MG TABLET 650 MG PO (13:54)
--- NOTE | 2024-06-30 15:00 | PC.SS ---
Patient is alert/oriented. Patient was admitted for left hemiparesis. Patient states he resides at a drug rehab program in [place]. Patient worked with PT today and they recommended acute rehab. Patient verbalized he is on probation. Patient asked if I could speak to his pharmaceutical officer to determine if he could be discharged anywhere else other than his rehab facility. SS spoke to pharmaceutical officer, Júnior. She states patient has to stay in [facility]. She will need patient to update her where he is going as well. Patient is not on disability and has no income. Patient states he recently went to [facility] for medical treatment a few months ago. cash management officer Júnior @ [phone] SS will send off PT notes to rehab facilities and contact drug rehab to verify if patient can have HH services as well. Patient states his alt medical decision maker is his ex girlfriend, Marly @ [phone]
--- NOTE | 2024-06-30 15:53 | ESPR_ITS ---
Documentation for date of: 06/30/24 Subjective Subjective Interval history: The patient reported that his weakness has been improving. He reported rt forearm pain as has recent fracture. Denied any new focal neuromuscular weakness, fever, chills, SOB or chest pain. Exam Vital Signs Temp Pulse Resp BP Pulse Ox O2 Del Method 97.6 F 81 20 123/84 96 Room Air 06/30/24 12:00 06/30/24 12:00 06/30/24 12:00 06/30/24 12:00 06/30/24 12:06/30/24 12:00 Narrative Exam GENERAL * Normal appearing adult male, NAD HEENT * NCAT.?RENARD. Oral mucosa is moist. Patent Nares NECK * Supple, nontender, no thyromegaly, no meningismus, no JVD, no step offs CHEST * RRR, no m/g/r * CTAB, no w/r/r. Symmetrical chest rise. No intercostal subcostal retraction * Atraumatic, nontender, no crepitus, symmetrical expansion. ABDOMEN * Soft, flat, nontender. No guarding/rebound tenderness/masses. * Bowel sounds presents EXTREMITIES * Nontender, no cyanosis, no edema * No edema/cyanosis.? SKIN * Warm and dry, no jaundice/rashes. NEUROMUSCULAR * No lumbar or midline, no CVA, no paraspinal muscle spasm or tenderness. * LLE strength 2/5, LUE strength 3/5 * Left side facial drops * left-sided sensation throughout * ROJAS x4, remainder cranial nerve exam intact. PSYCHIATRY * Normal mood and affect, cooperative, no SI or HI or hallucinations. Objective Labs 06/30/24 05:06 06/30/24 05:06 Labs: Laboratory Results - last 24 hr 06/30/24 05:06 WBC 7.6 RBC 5.25 Hgb 14.8 Hct 45.1 MCV 86 MCH 28.2 MCHC 32.8 RDW Std Deviation 40.8 Plt Count 210 Neut % (Auto) 45 Lymph % (Auto) 40 [place] % (Auto) 9 Eos % (Auto) 4 Baso % (Auto) 1 Neut # (Auto) 3.4 Lymph # (Auto) 3.1 [place] # (Auto) 0.7 Eos # (Auto) 0.3 Baso # (Auto) 0.1 Immature Gran # (Auto) 0.09 H Absolute Nucleated RBC 0.00 Immature Gran % 1 H Nucleated RBC % 0 Sodium 136 Potassium 4.2 Chloride 105 Carbon Dioxide 24.8 Anion Gap 6 L BUN 20 Creatinine 0.7 Estim Creat Clear Calc 142.6 eGFR > 60 BUN/Creatinine Ratio [address]ucose [address] Glu mg/dL 105 Hemoglobin A1c 5.3 Calculated Osmolality 274 L Calcium 9.4 Corrected Calcium 9.5 Phosphorus 4.1 Magnesium 1.8 Total Bilirubin 0.4 AST 24 ALT 61 H Alkaline Phosphatase 83 Total Protein 6.2 Albumin 3.9 D Globulin 2.3 Albumin/Globulin Ratio 1.7 Triglycerides 163 H Cholesterol 218 H LDL Cholesterol, Calc 135 H HDL Cholesterol 50 Cholesterol/HDL Ratio 4.4 TSH 2.50 ABG Interpretation ABG results: 06/29/24 10:36 ABG pH 7.38 ABG pCO2 43 ABG pO2 89 ABG HCO3 25 ABG O2 Saturation 98 ABG Base Excess 0 Quality Measures Quality Measures stroke Suspected type of Stroke: Non Acute Tenecteplase given: Reason(s) Tenecteplase not given: Outside the time window not given Rehab services: PT evaluation ordered and Speech Language Pathology eval ordered VTE Prophylaxis: pharmaceutical Antithrombotic by day 2:: ordered Statin ordered: <75 y/o high intensity dose Anticoagulation ordered for A-fib or flutter (current or hx): not indicated Assessment & Plan Assessment Current Active Medications: Generic Name Dose Route Start Last Admin Trade Name Freq PRN Reason Stop Dose Admin Acetaminophen 650 mg 06/29/24 11:41 Acetaminophen 325 Mg Tablet PO 07/29/24 11:40 Q6H PRN Fever >101.5 Acetaminophen 650 mg 06/29/24 11:41 06/30/24 13:54 Acetaminophen 325 Mg Tablet PO 07/29/24 11:40 650 mg Q6H PRN Administration PAIN SCALE 1-3 (mild Aspirin 81 mg 06/30/24 09:00 06/30/24 08:47 Aspirin Ec 81 Mg Tabec PO 07/30/24 08:59 81 mg QDAY TINO Administration Atorvastatin Calcium 80 mg 06/29/24 21:00 06/29/24 21:30 Atorvastatin Calcium 10 Mg Tablet PO 07/29/24 20:59 80 mg HS TINO Administration Diphenhydramine HCl 25 mg 06/29/24 12:10 06/29/24 23:29 Diphenhydramine 25 Mg Capsule PO 07/29/24 12:14 25 mg Q6H PRN Administration Headache Heparin Sodium (Porcine) 5,000 unit 06/30/24 06:00 06/30/24 13:55 Heparin Sod Inj 5000 Unit/Ml Vial SC 07/14/24 05:59 5,000 unit Q8HR TINO Administration Labetalol HCl 5 mg 06/29/24 15:56 Labetalol Inj 5 Mg/Ml Vial 20 Ml IV Q15M PRN SBP>220 or DBP > 120. Ondansetron HCl 4 mg 06/29/24 09:44 Ondansetron Inj 2 Mg/Ml Inj 2 Ml IV 07/29/24 09:43 Q4HR PRN NAUSEA OR VOMITING Prochlorperazine Maleate 10 mg 06/29/24 12:08 06/29/24 23:36 Prochlorperazine Maleate 5 Mg Tablet PO 07/29/24 12:14 10 mg Q6H PRN Administration Headache Plan This is a 44-year-old male with PMHx of HTN, admitted for recurrent left-sided weakness and stroke. TIA Stroke rule out Complex migraine ? Underlying psychotic disorder Reports headache started 2 to 3 days ago associated with sudden onset of left- sided weakness that started this morning. He is on his ED 2 days ago with similar symptoms, at the time. CT head was negative, no further interventions were done. Patient was discharged home. Denies fall, trauma, fever, chills, chest pain, shortness of breath, palpitations, GI or urinary symptoms. NIHSS of 4. Teleneuro was consulted who recommended admission for MRI and continued ASPIRIN. MRI brain negative and MRI Cervical spine negative for mild enhancement in the soft tissue around the posterior spinous processes C7, T1, T2, T3 ? Stroke protocol ? Neurochecks q.4 hours ? Head elevation >30 degrees ? Physical therapy ? Speech and swallow eval ? Seizure precautions ? Continue ASPIRIN 81 mg daily ? Continue ATORVASTATIN 80 mg daily ? Continue DIPHENHYDRAMINE 25 q.6h. ? Continue PROCHLORPERAZINE 10 mg q.6h. PRN ? Pending in-house neurology recommendations ? Lipid panel with hypertriglyceridemia and hypercholesterolemia, with A1c 5.3 and TSH WNL, pending echo ? Permissive hypertension <220/110 ? Continue TYLENOL for pain, fever and headache cocktail for headache ? AVOID narcotics HTN Currently normotensive. Allowing for permissive hypertensive ? Continue permissive HTN as above Health maintenance Diet: Regular diet GI prophylaxis: PROTONIX DVT prophylaxis: SCDs Antibiotics: Not indicated CODE STATUS: Full code Disposition: Pending neuro reccs The patient's management plan was discussed with my attending physician MD Jassi Brizuela MD, PGY2 Attending Provider Attestation/Addendum I reviewed labs, imaging, EKG, home medications and prior available records. Face to face evaluation was performed by me. I have personally examined the patient and discussed assessment and plan with the IM team. I reviewed the resident note and agree with the plan with exceptions as below. CVA symptoms Left upper extremity weakness Left lower extremity weakness Essential hypertension Hypertriglyceridemia Not a tPA candidate Started aspirin and atorvastatin Every 4 hour neurochecks Obtain brain MRI: Showed no acute changes but spine MRI showed possible cervical/thoracic soft tissue abnormalities. Will touch base with neurology to see if the have any clinical significance Follow-up echocardiogram Wound care/dressing change of the right upper extremity Ordered PT: Recommended rehab. Discussed with certified social workers in health care: Patient is on probation. He will need rehab and he cannot leave [facility]
[2024-06-30] MEDS: KETOROLAC INJ 30 MG/ML VIAL IVP (20:20)
[2024-06-30] MEDS: ATORVASTATIN CALCIUM 10 MG TABLET 80 MG PO (20:21)
--- NOTE | 2024-06-30 23:42 | PD.NEUROPROG ---
Documentation for date of: 06/30/24 Subjective Subjective Interval history: Patient was seen in telemetry today, continues to have left lower extremity weakness. Exam - Neurology Vital Signs Temp Pulse Resp BP Pulse Ox O2 Del Method 97.3 F 97 17 120/87 H 100 Room Air 06/30/24 20:00 06/30/24 20:00 06/30/24 20:00 06/30/24 20:00 06/30/24 20:00 06/30/24 20:00 Narrative Exam GENERAL APPEARANCE: Well hydrated, well-nourished in no acute distress. HEENT: Normocephalic, atraumatic, extraocular movements intact. Pupils: Equal reacting to light and accommodation NECK: Supple, no JVD or bruits. CARDIOVASULAR: Heart: S1, S2 heard, regular without S3-S4 or murmur no rubs or gallops. LUNGS/CHEST: Clear to auscultation bilaterally. No rails, rhonchi, or wheezing. Normal inspection. ABDOMEN: Soft, nontender, with normal bowel sounds. No pulsatile masses. No rebound, rigidity, or guarding. Normal inspection and palpation. EXTREMITIES: Normal inspection and palpation. No edema, clubbing or cyanosis. SKIN: Warm and dry without rashes. Normal inspection. MUSCULOSKELETAL: No cervical, thoracic, lumbar or midline bony tenderness. Normal inspection. Right upper extremity: Covered with cast and dressing NEURO: Alert, awake and oriented x3. Cranial nerves: II through XII grossly intact. Speech and language: Normal with no dysarthria or dysphasia. Motor system: Tone and bulk: Normal: Strength: Moves all extremities except the left lower extremity secondary to lack of effort, no pronator drift noted. Deep tendon reflexes: 2+ bilaterally symmetrical. Plantar reflex: Downgoing bilaterally. Sensory system: Intact to all modalities of sensation bilaterally. Coordination: Intact to [id number] and [id number]-[id number] test bilaterally. No ataxia, no dysmetria, or dysdiadochokinesia noted. No intention tremors noted. Gait: Cannot be tested. No signs of meningeal irritation noted. PSYCHIATRIC: Normal mood and affect. Objective Labs 07/01/24 04:45 07/01/24 04:45 Labs: Laboratory Results - last 24 hr 06/30/24 05:06 WBC 7.6 RBC 5.25 Hgb 14.8 Hct 45.1 MCV 86 MCH 28.2 MCHC 32.8 RDW Std Deviation 40.8 Plt Count 210 Neut % (Auto) 45 Lymph % (Auto) 40 [place] % (Auto) 9 Eos % (Auto) 4 Baso % (Auto) 1 Neut # (Auto) 3.4 Lymph # (Auto) 3.1 [place] # (Auto) 0.7 Eos # (Auto) 0.3 Baso # (Auto) 0.1 Immature Gran # (Auto) 0.09 H Absolute Nucleated RBC 0.00 Immature Gran % 1 H Nucleated RBC % 0 Sodium 136 Potassium 4.2 Chloride 105 Carbon Dioxide 24.8 Anion Gap 6 L BUN 20 Creatinine 0.7 Estim Creat Clear Calc 142.6 eGFR > 60 BUN/Creatinine Ratio 29 H Glucose [address] Glu mg/dL 105 Hemoglobin A1c 5.3 Calculated Osmolality 274 L Calcium 9.4 Corrected Calcium 9.5 Phosphorus 4.1 Magnesium 1.8 Total Bilirubin 0.4 AST 24 ALT 61 H Alkaline Phosphatase 83 Total Protein 6.2 Albumin 3.9 D Globulin 2.3 Albumin/Globulin Ratio 1.7 Triglycerides 163 H Cholesterol 218 H LDL Cholesterol, Calc 135 H HDL Cholesterol 50 Cholesterol/HDL Ratio 4.4 TSH 2.50 ABG Interpretation ABG results: 06/29/24 10:36 ABG pH 7.38 ABG pCO2 43 ABG pO2 89 ABG HCO3 25 ABG O2 Saturation 98 ABG Base Excess 0 Assessment & Plan Assessment and plan (1) Stroke-like symptoms: Status: Acute Assessment and plan: Reassurance given to the patient regarding the negative MRI brain for acute stroke. It only showed nonspecific white matter changes, not significant MRI of the cervical spine showed no significant degenerative changes Continue with statin Continue to encourage him to move his left lower extremity
[2024-07-01] VITALS (7 sets, daily range): BP systolic 117–133; BP diastolic 75–84; PULSE 56–77; RESP 15–97; TEMP 36–36.3; O2SAT 95–100; BMI 29.7
[2024-07-01] MEDS: HYDROcodone/APAP 5/325 TABLET 1 TAB PO ×3 (00:12→21:42)
[2024-07-01 05:25] LABS: Basophils # (Auto) 0.1 Thou/mm3 (0.0-0.2); Basophils % (Auto) 1 % (0-2.5); Eosinophils # (Auto) 0.3 Thou/mm3 (0.0-0.5); Eosinophils % (Auto) 4 % (0-10); Hematocrit 45.1 % (41.0-53.0); Immature Granulocytes % (Auto) 1 % (0-0); Immature Granulocytes Auto 0.09 Thou/mm3 (0.00-0.00); Lymphocytes # (Auto) 3.6 Thou/mm3 (1.0-4.8); Lymphocytes % (Auto) 45 % (10-50); Mean Corpuscular HGB Conc 33.3 g/dl (31.0-37.0); Mean Corpuscular Hemoglobin 28.2 pg (25.0-35.0); Mean Corpuscular Volume 85 fL (80-100); Monocytes # (Auto) 0.7 Thou/mm3 (0.0-0.8); Monocytes % (Auto) 9 % (0-12); Neutrophils # (Auto) 3.1 Thou/mm3 (1.8-7.7); Neutrophils % (Auto) 40 % (37-80); Nucleated Red Blood Cell % 0 /100 WBC (0); Platelet Count 211 Thou/mm3 (140-440); RDW Standard Deviation 39.2 fL (35.1-43.9); Red Blood Count 5.32 Miln/mm3 (4.50-5.90); White Blood Count 7.9 Thou/mm3 (3.8-10.6)
[2024-07-01] MEDS: HEPARIN SOD INJ 5000 UNIT/ML VIAL SC ×3 (05:30→21:42)
[2024-07-01 06:00] LABS: Alanine Aminotransferase 53 U/L (10-49); Albumin, Serum 3.9 gm/dL (3.5-5.0); Albumin/Globulin Ratio 1.6 (1.2-2.2); Alkaline Phosphatase 84 U/L (46-116); Anion Gap 9 (7-16); Aspartate Amino Transferase 20 U/L (0-34); BUN/Creatinine Ratio 29 Ratio (12-20); Bilirubin,Total 0.4 mg/dL (0.3-1.2); Blood Urea Nitrogen 23 mg/dL (9-23); Calcium 9.6 mg/dL (8.3-10.6); Calcium (Corrected) 9.7 mg/dL (8.5-10.1); Carbon Dioxide 24.1 mMol/L (20.0-31.0); Chloride 105 mMol/L (98-107); Creatinine (Component) 0.8 mg/dL (0.6-1.3); Estimated Creatinine Clearance 124.7 mL/min (>60); Globulin 2.5 gm/dL (2.3-3.5); Glucose 120 mg/dL (74-106); Magnesium 1.8 mg/dL (1.6-2.6); Osmolality,Calculated 280 (275-295); Phosphorous 5.4 mg/dL (2.4-5.1); Potassium 4.4 mMol/L (3.4-5.1); Sodium 138 mMol/L (136-145); Total Protein 6.4 gm/dL (5.7-8.2); eGFR > 60 See Note
[2024-07-01] MEDS: ASPIRIN EC 81 MG TABEC PO (08:39)
--- NOTE | 2024-07-01 13:53 | PC.SS ---
Patient needs a wheelchair for home. The patient and her family are requesting a wheel chair. Patients diagnosis creates mobility limitations that significantly impairs ability to participate in the patient?s activities of daily living either in their entirety or in a reasonable timeframe in the home and the patient?s mobility limitations cannot be sufficiently resolved with an appropriately fitted cane or walker. Also, the use of a manual wheelchair will sufficiently improve patients ability to participate in the activities of daily living in the home and the patient is willing to use the wheelchair that is provided in the home. The patient has some one in the home that is available, willing and able to provide assistance with the wheelchair.
--- NOTE | 2024-07-01 14:47 | ESDS_ITS ---
<Statement entered by Wendy Purcell MD - 07/05/24 15:41> I reviewed above note and agree with findings and plans. I have also personally examined the patient with medicine team and went over assessment and plan with medical team including video editing intern and resident physician. Planned Discharge Date 07/01/24 DS: Providers Provider Date of admission: 06/29/24 11:41 Primary care physician: Justo Titus MD Admitting Provider: Juan Interiano MD Attending Provider on Admission: Juan Interiano MD Consults: 06/29/24 09:44 Consult to Neurology / Tele-Neurology Routine Comment: Consulting Provider: [facility] 06/29/24 11:47 Referral Physical Therapy Stat Comment: Physician Instructions: Referral Speech Therapy Stat Comment: 06/29/24 14:20 Consult to Neurology / Tele-Neurology Routine Comment: Consulting Provider: Sandeep Cota Attending Provider on DC: Jassi Ivory MD Discharging Provider: Jassi Ivory MD DS: Diagnosis Problem List Completed Was Problem List Reviewed/Reconciled?: Yes Hospital Course Hospital Course Hospital course: The patient is a 44-year-old male PMHx of HTN presented to ED with left-sided weakness and numbness for 30 minutes. Reported a headache that started previous night and gradual onset of worsening left-sided weakness and numbness. He also endorsed diminished vision of the left eye which he reported as some blindness that started around the same time. He was seen in the ED 2 days ago for left- sided weakness only. CT head and CTA head and neck was negative, MRI brain nega tive and MRI Cervical spine negative for mild enhancement in the soft tissue around the posterior spinous processes C7, T1, T2, T3. Neurologist recommended continuing with high intensity statin. The patient was clinically stable to be dishcarged, and discharged back to his facility. Problems: Left sided hemiparesis and hemiplegia, etiology unknown Stroke ruled out Complex migraine HTN Plans: Please follow-up with your PCP within 1 week of discharge. Please follow-up with neurologist Dr. Cota within 2 weeks. You have been started on: -Acetaminophen 650 mg every 6 hourly as needed for pain -Atorvastatin 80 Mg daily at night -Cymbalta 30mg daily to be continued -Diphenhydramine 25 Mg along with prochlorperazine 10 Mg every 6 hourly as needed for headache Continue taking all other medicines as prescribed -Recommended to return back to emergency department if your symptoms persists or worsens The patient's discharge plan was discussed with my attending physician MD Jassi Munoz MD, PGY2 Time Spent with Patient Time attestation: Total time spent providing and/or coordinating discharge services: Greater than 35 minutes Exam Vital Signs Temp Pulse Resp BP Pulse Ox O2 Del Method 96.8 F 61 17 117/75 95 Room Air 07/01/24 12:07/01/24 12:07/01/24 12:07/01/24 12:07/01/24 12:07/01/24 12:00 Narrative Exam GENERAL * Normal appearing adult male, NAD HEENT * NCAT.?RENARD. Oral mucosa is moist. Patent Nares NECK * Supple, nontender, no thyromegaly, no meningismus, no JVD, no step offs CHEST * RRR, no m/g/r * CTAB, no w/r/r. Symmetrical chest rise. No intercostal subcostal retraction * Atraumatic, nontender, no crepitus, symmetrical expansion. ABDOMEN * Soft, flat, nontender. No guarding/rebound tenderness/masses. * Bowel sounds presents EXTREMITIES * Nontender, no cyanosis, no edema * No edema/cyanosis.? SKIN * Warm and dry, no jaundice/rashes. NEUROMUSCULAR * No lumbar or midline, no CVA, no paraspinal muscle spasm or tenderness. * LLE strength 3/5, LUE strength 4/5 * Left side facial drops * left-sided sensation throughout * ROJAS x4, remainder cranial nerve exam intact. PSYCHIATRY * Normal mood and affect, cooperative, no SI or HI or hallucinations. Discharge Plan Plan Patient Disposition: Xfer Skilled Nsg Fac (SNF) Disposition Comment: Acute rehab Care Plan Goals: Please follow-up with your PCP within 1 week of discharge. Please follow-up with neurologist Dr. Cota within 2 weeks. You have been started on: -Acetaminophen 650 mg every 6 hourly as needed for pain -Atorvastatin 80 Mg daily at night -Cymbalta 30mg daily to be continued -Diphenhydramine 25 Mg along with prochlorperazine 10 Mg every 6 hourly as needed for headache Continue taking all other medicines as prescribed -Recommended to return back to emergency department if your symptoms persists or worsens Prescriptions/Referrals Prescriptions/Med Rec: New prochlorperazine maleate 5 mg Tablet 10 mg PO Q6H PRN (Reason: Headache) 10 Days Qty: 30 0RF diphenhydramine HCl [Banophen] 25 mg Capsule 25 mg PO Q6H PRN (Reason: Headache) 10 Days Qty: 30 0RF atorvastatin 80 mg tablet 80 mg PO HS 30 Days Qty: 30 2RF acetaminophen 325 mg Tablet 650 mg PO Q6H PRN (Reason: pain) 30 Days Qty: 60 0RF duloxetine [Cymbalta] 30 mg capsule,delayed release(DR/EC) 30 mg PO QDAY 30 Days Qty: 30 3RF Referrals: Justo Titus MD [Primary Care Provider] - Patient/Caregiver Discharge Instructions Discharge Activity: as per physical therapy Education Materials: Anxiety Disorders Tx Therapy, Treating Anxiety Disorders ... Print Language: [place] Stand Alone Forms: Kamla Award Info., Patient Portal Info Letter Discharge Order Discharge Orders: Discharge (Routine); Ordered 07/01/24 Ordered By: Jassi Ivory Quality Discharge Quality Measures VTE prophylaxis
--- NOTE | 2024-07-01 15:21 | PC.NURSE ---
box storage worker Saadia and I talked to patient. He was not accepted to a rehabilitation center did not meet the requirements. Saadia called his environmental compliance officer Geri at bedside and explained to her patient was going to ID. Geri agreed to come and pick him up around 5:30 and 6:00. A worker from the [facility] came to pick him up and I explained to him Geri was going to pick him up. The employee then notified me. Probational officer never called the [facility] center and notified them. Wheel chair arrived from [facility]. Patient at discharge will take wheel chair with him. I have called Geri multiple times, left messages and she does not answer. Patient signed discharge orders and IV was removed. Will continue to monitor patient.
[2024-07-01] MEDS: ATORVASTATIN CALCIUM 10 MG TABLET 80 MG PO (21:41)
--- NOTE | 2024-07-01 23:52 | PD.NEUROPROG ---
Documentation for date of: 07/01/24 Subjective Subjective Interval history: Patient was seen in telemetry today, continues to have left lower extremity weakness. Exam - Neurology Vital Signs Temp Pulse Resp BP Pulse Ox O2 Del Method 97.1 F 72 18 133/77 H 98 Room Air 07/01/24 20:00 07/01/24 23:30 07/01/24 23:30 07/01/24 20:00 07/01/24 20:00 07/01/24 20:00 Narrative Exam GENERAL APPEARANCE: Well hydrated, well-nourished in no acute distress. HEENT: Normocephalic, atraumatic, extraocular movements intact. Pupils: Equal reacting to light and accommodation NECK: Supple, no JVD or bruits. CARDIOVASULAR: Heart: S1, S2 heard, regular without S3-S4 or murmur no rubs or gallops. LUNGS/CHEST: Clear to auscultation bilaterally. No rails, rhonchi, or wheezing. Normal inspection. ABDOMEN: Soft, nontender, with normal bowel sounds. No pulsatile masses. No rebound, rigidity, or guarding. Normal inspection and palpation. EXTREMITIES: Normal inspection and palpation. No edema, clubbing or cyanosis. SKIN: Warm and dry without rashes. Normal inspection. MUSCULOSKELETAL: No cervical, thoracic, lumbar or midline bony tenderness. Normal inspection. Right upper extremity: Covered with cast and dressing NEURO: Alert, awake and oriented x3. Cranial nerves: II through XII grossly intact. Speech and language: Normal with no dysarthria or dysphasia. Motor system: Tone and bulk: Normal: Strength: Moves all extremities except the left lower extremity secondary to lack of effort, no pronator drift noted. Deep tendon reflexes: 2+ bilaterally symmetrical. Plantar reflex: Downgoing bilaterally. Sensory system: Intact to all modalities of sensation bilaterally. Coordination: Intact to [id number]-dbak-lazpe and hveu-xide-bumz test bilaterally. No ataxia, no dysmetria, or dysdiadochokinesia noted. No intention tremors noted. Gait: Cannot be tested. No signs of meningeal irritation noted. PSYCHIATRIC: Normal mood and affect. Objective Labs 07/02/24 05:09 07/02/24 05:09 Labs: Laboratory Results - last 24 hr 07/01/24 04:45 WBC 7.9 RBC 5.32 Hgb 15.0 Hct 45.1 MCV 85 MCH 28.2 MCHC 33.3 RDW Std Deviation 39.2 Plt Count 211 Neut % (Auto) 40 Lymph % (Auto) 45 [place] % (Auto) 9 Eos % (Auto) 4 Baso % (Auto) 1 Neut # (Auto) 3.1 Lymph # (Auto) 3.6 [place] # (Auto) 0.7 Eos # (Auto) 0.3 Baso # (Auto) 0.1 Immature Gran # (Auto) 0.09 H Absolute Nucleated RBC 0.00 Immature Gran % 1 H Nucleated RBC % 0 Sodium 138 Potassium 4.4 Chloride 105 Carbon Dioxide 24.1 Anion Gap 9 BUN 23 Creatinine 0.8 Estim Creat Clear Calc 124.7 eGFR > 60 BUN/Creatinine Ratio 29 H Glucose 120 H Calculated Osmolality 280 Calcium 9.6 Corrected Calcium 9.7 Phosphorus 5.4 H Magnesium 1.8 Total Bilirubin 0.4 AST 20 ALT 53 H Alkaline Phosphatase 84 Total Protein 6.4 Albumin 3.9 Globulin 2.5 Albumin/Globulin Ratio 1.6 ABG Interpretation ABG results: 06/29/24 10:36 ABG pH 7.38 ABG pCO2 43 ABG pO2 89 ABG HCO3 25 ABG O2 Saturation 98 ABG Base Excess 0 Assessment & Plan Assessment and plan (1) Stroke-like symptoms: Status: Acute Assessment and plan: Reassurance given to the patient regarding the negative MRI brain for acute stroke. It only showed nonspecific white matter changes, not significant MRI of the cervical spine showed no significant degenerative changes Continue with statin Continue to encourage him to move his left lower extremity
[2024-07-02] VITALS (7 sets, daily range): BP systolic 115–139; BP diastolic 70–83; PULSE 59–85; RESP 17–95; TEMP 36.1–36.5; O2SAT 93–97; BMI 29.7
[2024-07-02] MEDS: traMADol HCL 50 MG TABLET PO (02:08)
[2024-07-02] MEDS: HYDROcodone/APAP 5/325 TABLET 1 TAB PO ×3 (05:03→22:13)
[2024-07-02] MEDS: HEPARIN SOD INJ 5000 UNIT/ML VIAL SC ×3 (05:04→22:17)
[2024-07-02 06:00] LABS: Basophils # (Auto) 0.1 Thou/mm3 (0.0-0.2); Basophils % (Auto) 1 % (0-2.5); Eosinophils # (Auto) 0.3 Thou/mm3 (0.0-0.5); Eosinophils % (Auto) 4 % (0-10); Hematocrit 45.4 % (41.0-53.0); Hemoglobin 15.6 g/dL (13.5-16.0); Immature Granulocytes % (Auto) 2 % (0-0); Immature Granulocytes Auto 0.13 Thou/mm3 (0.00-0.00); Lymphocytes # (Auto) 3.4 Thou/mm3 (1.0-4.8); Lymphocytes % (Auto) 46 % (10-50); Mean Corpuscular HGB Conc 34.4 g/dl (31.0-37.0); Mean Corpuscular Hemoglobin 28.4 pg (25.0-35.0); Mean Corpuscular Volume 83 fL (80-100); Monocytes # (Auto) 0.6 Thou/mm3 (0.0-0.8); Monocytes % (Auto) 8 % (0-12); Neutrophils # (Auto) 2.8 Thou/mm3 (1.8-7.7); Neutrophils % (Auto) 39 % (37-80); Nucleated Red Blood Cell % 0 /100 WBC (0); Platelet Count 200 Thou/mm3 (140-440); RDW Standard Deviation 38.9 fL (35.1-43.9); Red Blood Count 5.49 Miln/mm3 (4.50-5.90); White Blood Count 7.3 Thou/mm3 (3.8-10.6)
[2024-07-02 06:32] LABS: Alanine Aminotransferase 60 U/L (10-49); Albumin, Serum 4.1 gm/dL (3.5-5.0); Albumin/Globulin Ratio 1.6 (1.2-2.2); Alkaline Phosphatase 86 U/L (46-116); Anion Gap 9 (7-16); Aspartate Amino Transferase 25 U/L (0-34); BUN/Creatinine Ratio 20 Ratio (12-20); Bilirubin,Total 0.5 mg/dL (0.3-1.2); Blood Urea Nitrogen 16 mg/dL (9-23); Calcium 9.3 mg/dL (8.3-10.6); Calcium (Corrected) 9.3 mg/dL (8.5-10.1); Carbon Dioxide 25.3 mMol/L (20.0-31.0); Chloride 105 mMol/L (98-107); Creatinine (Component) 0.8 mg/dL (0.6-1.3); Estimated Creatinine Clearance 124.7 mL/min (>60); Globulin 2.6 gm/dL (2.3-3.5); Glucose 92 mg/dL (74-106); Magnesium 1.9 mg/dL (1.6-2.6); Osmolality,Calculated 278 (275-295); Phosphorous 4.3 mg/dL (2.4-5.1); Potassium 4.4 mMol/L (3.4-5.1); Sodium 139 mMol/L (136-145); Total Protein 6.7 gm/dL (5.7-8.2); eGFR > 60 See Note
[2024-07-02] MEDS: ASPIRIN EC 81 MG TABEC PO (08:21)
--- NOTE | 2024-07-02 12:29 | ESDS_ITS ---
<Statement entered by Wendy Purcell MD - 07/08/24 15:57> I reviewed above note and agree with findings and plans. I have also personally examined the patient with medicine team and went over assessment and plan with medical team including photography intern and resident physician. Addendum Discharge Addendum Date of report being addended: 07/01/24 Narrative: Scheduled Discharge : 07/01/2024 Reason for delay : Pending correctional facility guard response Summary: Patient is a 44-year-old male PMHx of HTN presented to ED with left- sided weakness and numbness for 30 minutes. Reported a headache that started previous night and gradual onset of worsening left-sided weakness and numbness. He also endorsed diminished vision of the left eye which he reported as some blindness that started around the same time. He was seen in the ED 2 days ago for left-sided weakness only. CT head and CTA head and neck was negative, MRI brain negative and MRI Cervical spine negative for mild enhancement in the soft tissue around the posterior spinous processes C7, T1, T2, T3. Neurologist recommended continuing with high intensity statin. The patient was clinically stable to be dishcarged, and discharged back to his facility. Problem List: - Left sided hemiparesis and hemiplegia, etiology unknown - Stroke ruled out - Complex migraine - Primary HTN Discharge Instructions: - Please follow-up with your PCP within 1 week of discharge. - Please follow-up with neurologist Dr. Cota within 2 weeks. You have been started on: - Acetaminophen 650 mg every 6 hourly as needed for pain - Atorvastatin 80 Mg daily at night - Cymbalta 30mg daily to be continued - Diphenhydramine 25 Mg along with prochlorperazine 10 Mg every 6 hourly as needed for headache - Continue taking all other medicines as prescribed - Recommended to return back to emergency department if your symptoms persists or worsens Plan of care discussed with attending Gagan Arzola M.D. PGY2
--- NOTE | 2024-07-02 13:19 | PC.NURSE ---
grove worker aware of discharge orders.
--- NOTE | 2024-07-02 14:39 | PC.SS ---
SS spoke with JIMMIE Mcintyre, confirmed director stated that pt must be transported by PO [facility]AMES for Officer Júnior [phone] regarding discharge SS spoke with JIMMIE Mcintyre, [phone] who will check with Director to see if they can pecan picker pt;
[2024-07-02] MEDS: ATORVASTATIN CALCIUM 10 MG TABLET 80 MG PO (22:00)
--- NOTE | 2024-07-02 23:57 | VVPN_ITS ---
Telemedicine visit statement This visit was conducted with the use of interactive audio and video telecommunications system that permits real time communication between the patient and the provider. Patient's verbal consent for virtual visit was obtained on 07/02/24 at 2357. Documentation for date of: 07/02/24 Subjective Subjective Interval history: Patient is in telemetry, no new symptoms reported, able to move his left side and feel as well. Virtual exam Vital Signs Temp Pulse Resp BP Pulse Ox O2 Del Method 97.4 F 63 18 118/75 95 Room Air 07/02/24 20:00 07/02/24 20:00 07/02/24 20:00 07/02/24 20:00 07/02/24 20:00 07/02/24 20:00 Objective Labs 07/02/24 05:09 07/02/24 05:09 Labs: Laboratory Results - last 24 hr 07/02/24 05:09 WBC 7.3 RBC 5.49 Hgb 15.6 Hct 45.4 MCV 83 MCH 28.4 MCHC 34.4 RDW Std Deviation 38.9 Plt Count 200 Neut % (Auto) 39 Lymph % (Auto) 46 [place] % (Auto) 8 Eos % (Auto) 4 Baso % (Auto) 1 Neut # (Auto) 2.8 Lymph # (Auto) 3.4 [place] # (Auto) 0.6 Eos # (Auto) 0.3 Baso # (Auto) 0.1 Immature Gran # (Auto) 0.13 H Absolute Nucleated RBC 0.00 Immature Gran % 2 H Nucleated RBC % 0 Sodium 139 Potassium 4.4 Chloride 105 Carbon Dioxide 25.3 Anion Gap 9 BUN 16 Creatinine 0.8 Estim Creat Clear Calc 124.7 eGFR > 60 BUN/Creatinine Ratio 20 Glucose 92 Calculated Osmolality 278 Calcium 9.3 Corrected Calcium 9.3 Phosphorus 4.3 Magnesium 1.9 Total Bilirubin 0.5 AST 25 ALT 60 H Alkaline Phosphatase 86 Total Protein 6.7 Albumin 4.1 Globulin 2.6 Albumin/Globulin Ratio 1.6 ABG Interpretation ABG results: 06/29/24 10:36 ABG pH 7.38 ABG pCO2 43 ABG pO2 89 ABG HCO3 25 ABG O2 Saturation 98 ABG Base Excess 0
[2024-07-03] VITALS: BP 143/83; PULSE 69; PULSE 72; RESP 17; TEMP 36.1; O2SAT 96
[2024-07-03 04:00] VITALS: BP 124/66; PULSE 60; PULSE 96; RESP 17; TEMP 36.2; O2SAT 96
[2024-07-03] MEDS: HYDROcodone/APAP 5/325 TABLET 1 TAB PO ×3 (04:03→20:04)
[2024-07-03] MEDS: HEPARIN SOD INJ 5000 UNIT/ML VIAL SC ×3 (05:03→21:45)
[2024-07-03 06:00] VITALS: BMI 29.7
[2024-07-03 08:00] VITALS: BP 122/80; PULSE 60; PULSE 86; RESP 18; TEMP 36.1; O2SAT 96
[2024-07-03] MEDS: ASPIRIN EC 81 MG TABEC PO (09:02)
--- NOTE | 2024-07-03 11:23 | PC.SS ---
SS attempted to make over the phone contact with Officer Júnior [phone] regarding discharge and pt needing transport. No answer. VM left.
[2024-07-03 12:00] VITALS: BP 110/69; PULSE 69; PULSE 77; RESP 18; TEMP 36.3; O2SAT 94
--- NOTE | 2024-07-03 12:53 | PD.ADDDSCHGE ---
Addendum Discharge Addendum Date of report being addended: 07/30/24 Narrative: 44-year-old male with hypertension presented with left-sided weakness subsequently admitted for stroke workup. As a result, patient underwent extensive workup including MRI of the brain which was negative for any acute changes and underwent MRI of cervical spine with which noted mild enhancement in the soft tissue around the posterior spinous processes C7, T1, T2 and T3. Furthermore, patient continued to have left-sided weakness and evaluated by neurology who did not recommend any further workup. As of now, patient does have 4 out of 5 weakness in the left lower extremity and neurology recommended outpatient workup. As of now, patient is pending placement and once placement arranged patient will be able to be discharged Physical Exam: General: Alert and oriented to name, date of and place HEENT: Normocephalic, atraumatic. No facial droop. Cardiac: Regular rate and rhythm, no murmurs Lungs: Clear to auscultation with no wheezing or crackles Abdomen: Nondistended, nontender positive bowel sounds. No guarding or rebound tenderness. Neurology: Cranial nerves II to XII intact. 4 out of 5 strength in the left lower extremity otherwise unremarkable exam. 5 out of 5 strength in the right upper extremity, right lower extremity and left upper extremity. Skin: No rash or edema.
[2024-07-03 16:00] VITALS: BP 117/71; PULSE 57; PULSE 61; RESP 18; TEMP 36.3; O2SAT 93
--- NOTE | 2024-07-03 16:09 | EKG_ITS ---
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
--- NOTE | 2024-07-03 16:10 | XR_ITS ---
Examination: AP chest single view TECHNIQUE: AP portable upright chest single view Examination date and time: July 03, 2024 at 1701 hours Comparison June 29, 2024 INDICATIONS: Left hemiparesis today. FINDINGS: Normal heart size. No aspiration pneumonia. No pulmonary edema. The osseous structures are intact. IMPRESSION: No active disease.
--- NOTE | 2024-07-03 16:12 | XR_ITS ---
Examination: CT brain head without contrast. 2-D sagittal coronal reconstructions Date and time of exam:July 03, 2024 1622 hours INDICATIONS: Stroke alert, onset focal neurologic deficit today, stroke alert, June 29, 2024 episode left-sided body weakness CTDI: vol (mGy):49.3 DLP: (mGycm):951 Technique: Multiple CT axial sections of the brain have been obtained, 5 mm slice thickness. Contrast has not been administered. 2-D sagittal, coronal reconstructions have been obtained Low dose protocols were performed. One or more of the following dose reduction techniques were used; automated exposure control, adjustment of the mA and/or KV according to patient size, use of iterative reconstruction technique. Findings: No significant ventricular enlargement. Intra-axial or extra-axial hemorrhage density is not seen. No mass effect or midline shift Basal cisterns are not remarkable. Fourth ventricle is midline. Cranial vault intact. Impression: Negative for acute hemorrhage, mass effect or midline shift Consider repeat brain MRI follow-up, stroke protocol [facility]
--- NOTE | 2024-07-03 16:31 | XR_ITS ---
Examination: CTA carotids with intravenous contrast CTA brain, head with intravenous contrast. 2-D sagittal, coronal reconstructions. 3-D reconstructions. Exam date and time: July 03, 2024 1647 hours Comparison June 29, 2024 CTDI: vol (mGy) 28.5 DLP: (mGycm) 442 INDICATIONS: Stroke alert, onset left-sided body weakness beginning 4 days ago, worse today Technique: Multiple CTA axial brain, head carotid images post intravenous contrast injection 75 cc, Isovue-[id number]. 2-D sagittal, coronal reconstructions. 3-D reconstructions, 3-D post processing including vascular maximum intensity projection images. Low dose protocols were performed. One or more of the following dose reduction techniques were used; automated exposure control, adjustment of the mA and/or KV according to patient size, use of iterative reconstruction technique. Findings: No significant common carotid carotid bifurcation or internal carotid artery stenoses Dominant left vertebral artery with no critical stenoses Moderate irregularity left posterior cerebral artery. No large vessel cerebral arterial occlusions or thrombus IMPRESSION: No significant neck arterial stenoses No cerebral large vessel arterial occlusions or thrombus.
--- NOTE | 2024-07-03 16:52 | EVENTNT_ITS ---
<Statement entered by Wendy Purcell MD - 07/08/24 16:21> I reviewed above note and agree with findings and plans. I have also personally examined the patient with medicine team and went over assessment and plan with medical team including internal grinder set up operator and resident physician. Documentation for date of: 07/03/24 Event Note Event Note: Rapid response and stroke alert were called at 1620 due to patient having chest pain and worsening left-sided weakness. On arrival his vitals are stable. Patient reports chest pain which is worsening with deep breathing and sternal palpation. His left lower extremity is numb and he is unable to move it, finding consistent with morning findings. He was able to ambulate his left upper extremity in the morning however now only able to make minimal movement and is unable to raise it. He also reports he is left face is numb and weak. Teleneuro was consulted, patient was taken for CT of the head and CTA. He was given Plavix 300 mg x 1. Teleneuro recommended MRI and lumbar puncture to rule out demyelinating disease. Due to complaint of chest pain he was also ordered EKG and troponin. Patient was upgraded to telemetry. Plan of care discussed with attending Dr. Purcell. Diony Tobias MD, PGY 2. Disclaimer: This note was dictated by speech recognition. Minor errors in cmm inspector may be present due to voice recognition software.
[2024-07-03] MEDS: CLOPIDOGREL BISULFATE 75 MG TABLET 300 MG PO (17:05)
[2024-07-03 17:11] LABS: Troponin I < 0.002 ng/mL (0.0-0.045)
--- NOTE | 2024-07-03 17:36 | PD.TNEURO ---
Tele Neuro Consultation Consultation Date 07/03/24 Most Recent Vital Signs Last Vital Signs Temp 97.3 F 07/03/24 12:00 Pulse 57 L 07/03/24 16:00 Resp 18 07/03/24 12:00 BP 110/69 07/03/24 12:00 Pulse Ox 94 L 07/03/24 12:00 O2 Del Method Room Air 07/03/24 12:00 Laboratory-Coagulation Panel PT 10.4 Seconds (9.0-12.2) 06/29/24 09:50 INR 0.9 (0.9-1.3) 06/29/24 09:50 APTT 24.5 Seconds (22.0-36.0) 06/29/24 09:50 Consultation Narrative [facility] Patient Name:???Yanick Soliz Date of :???1980 Identification Number:??? Date of Service:???07/03/2024 16:09:56 Diagnosis:?I63.81 - Cerebrovascular accident (CVA) due to occlusion of small artery ?G37.9 - Demyelinating disease of central nervous system, unspecified Impression: ?Pt presents with L sided weakness and sensory loss as well as L sided vision changes that have acutely worsened today, 5 days after admission. Pt is outside the time window for thrombolytics. He has risk factors for vascular abnormalities, but has had a vascular work-up that is negative. His initial MRI showed white matter disease in a pattern that is suggestive of demyelination. Given new acute change that has been fluctuating, would recommend repeat MRI brain w/&/wout contrast to evaluate for acute ischemia vs demyelination vs other intracranial abnormality. As well, would recommend dual anti-platelet therapy. Furthermore, would consider high dose steroids 1g solumedrol for 3-5 days if not contraindicated and obtain LP if etiology is not determined on repeat imaging to assess for demyelinating disease. Our recommendations are outlined below. Recommendations: ? Stroke/Telemetry Floor ? Neuro Checks ? Bedside Swallow Eval ? DVT Prophylaxis ? IV Fluids, Normal Saline ? Head of Bed 30 Degrees ? Euglycemia and Avoid Hyperthermia (PRN Acetaminophen) ? Bolus with Clopidogrel 300 mg bolus x1 and initiate dual antiplatelet therapy with Aspirin 81 mg daily and Clopidogrel 75 mg daily ? Antihypertensives PRN if Blood pressure is greater than 220/120 or there is a concern for End organ damage/contraindications for permissive HTN. If blood pressure is greater than 220/120 give labetalol PO or IV or Vasotec IV with a goal of 15% reduction in BP during the first 24 hours. Sign Out: ? Discussed with Primary Attending Advanced Imaging:CTA Head and Neck Completed. LVO:No Patient in not a candidate for TONY Metrics: Last Known Well: Unknown Dispatch Time: 07/03/2024 16:09:56 Initial Response Time: 07/03/2024 16:13:41Symptoms: L sided weakness and VF cut. Initial patient interaction: 07/03/2024 16:27:48 NIHSS Assessment Completed: 07/03/2024 16:37:48Patient is not a candidate for Thrombolytic. Thrombolytic Medical Decision: 07/03/2024 16:40:27Patient was not deemed candidate for Thrombolytic because of following reasons: LKW outside 4.[address] head showed no acute hemorrhage or acute core infarct. I personally Reviewed the CT Head and it Showed no hemorrhage. Primary Provider Notified of Diagnostic Impression and Management Plan on: 07/03/2024 17:03:11 Spoke With: Resident Able to Reach 07/03/2024 17:03:11 History of Present Illness:Patient is a 44 year old Male. Inpatient stroke alert was called for symptoms of L sided weakness and VF cut. Pt presented for L sided weakness on 06/29. Pt's imaging was negative for vascular abnormalities. He has had CT head, CTA head/neck and MRI brain all negative. Throughout his hospital stay over the last 5 days he's had varying degrees of L sided weakness and VF deficit. Around 3:45pm pt suddenly couldn't move his LUE at all anymore, and he had monocular vision loss in the L eye. Review of the changes on the MRI brain are suggestive of possible demyelinating disease which would match the clinical picture. He also has a history of arrhythmia for which there was consideration for PM placement but eventually that did not occur. He is not sure of the details. ? Past Medical History: ?Hypertension ?Coronary Artery Disease ?There is no history of Diabetes Mellitus ?There is no history of Hyperlipidemia ?There is no history of Atrial Fibrillation ?There is no history of Stroke ?There is no history of Covid-19 ?There is no history of Seizures ?There is no history of Migraine Headaches ?There is no history of Dementia/MCI Medications: No Anticoagulant use? Antiplatelet use:?Yes?aspirin Reviewed EMR for current medications Allergies:? NKDA Social History: Smoking: No Alcohol Use: No Drug Use: Former Family History: There is no family history of premature cerebrovascular disease pertinent to this consultation ROS : 14 Points Review of Systems was performed and was negative except mentioned in HPI. Past Surgical History: There Is No Surgical History Contributory To Today?s Visit ? Examination: BP(117/60),?Pulse(59),?Blood Glucose(116) 1A: Level of Consciousness - Alert; keenly responsive?+ 0 1B: Ask Month and Age - Both Questions Right?+ 0 1C: Blink Eyes & Squeeze Hands - Performs Both Tasks?+ 0 2: Test Horizontal Extraocular Movements - Forced Gaze Palsy: Cannot Be Overcome?+ 2 3: Test Visual Carr - Complete Hemianopia?+ 2 4: Test Facial Palsy (Use Grimace if Obtunded) - Normal symmetry?+ 0 5A: Test Left Arm Motor Drift - No Effort Against Gridley?+ 3 5B: Test Right Arm Motor Drift - No Drift for 10 Seconds?+ 0 6A: Test Left Leg Motor Drift - No Effort Against Gridley?+ 3 6B: Test Right Leg Motor Drift - No Drift for 5 Seconds?+ 0 7: Test Limb Ataxia (FNF/Heel-Goldman) - No Ataxia?+ 0 8: Test Sensation - Complete Loss: Cannot Sense Being Touched At All?+ 2 9: Test Language/Aphasia - Normal; No aphasia?+ 0 10: Test Dysarthria - Normal?+ 0 11: Test Extinction/Inattention - No abnormality?+ 0 NIHSS Score:?12 Pre-Morbid Modified [place] Scale:2 Points = Slight disability; unable to carry out all previous activities, but able to look after own affairs without assistance Spoke with :?Resident This consult was conducted in real time using interactive audio and video technology. Patient was informed of the technology being used for this visit and agreed to proceed. Patient located in hospital and provider located at home/office setting. Patient is being evaluated for possible acute neurologic impairment and high probability of imminent or life-threatening deterioration. I spent total of 39 minutes providing care to this patient, including time for face to face visit via telemedicine, review of medical records, imaging studies and discussion of findings with providers, the patient and/or family. Dr Alma Headed [facility] For Inpatient follow-up with [facility] physician please call [facility] at . As we are not an outpatient service for any post hospital discharge needs please contact the hospital for assistance. If you have any questions for the [facility] physicians or need to reconsult for clinical or diagnostic changes please contact us via [facility] at . ?
--- NOTE | 2024-07-03 19:32 | PC.NURSE ---
Received patient on Tele at approx [id number]
[2024-07-03 20:00] VITALS: BP 119/68; PULSE 62; PULSE 65; RESP 15; TEMP 36.7; O2SAT 98
[2024-07-03] MEDS: ATORVASTATIN CALCIUM 10 MG TABLET 80 MG PO (20:04)
--- NOTE | 2024-07-03 22:52 | PD.VPROG1 ---
Telemedicine visit statement This visit was conducted with the use of interactive audio and video telecommunications system that permits real time communication between the patient and the provider. Patient's verbal consent for virtual visit was obtained on 07/03/24 at 2252. Documentation for date of: 07/03/24 Subjective Subjective Interval history: Patient is in telemetry, no new symptoms reported, able to move his left side and feel as well. Virtual exam Vital Signs Temp Pulse Resp BP Pulse Ox O2 Del Method 98.1 F 65 15 119/68 98 Room Air 07/03/24 20:00 07/03/24 20:00 07/03/24 20:00 07/03/24 20:00 07/03/24 20:00 07/03/24 20:00 Objective Labs 07/02/24 05:09 07/02/24 05:09 Labs: Laboratory Results - last 24 hr 07/03/24 16:25 Troponin I < 0.002 ABG Interpretation ABG results: 06/29/24 10:36 ABG pH 7.38 ABG pCO2 43 ABG pO2 89 ABG HCO3 25 ABG O2 Saturation 98 ABG Base Excess 0 Assessment & Plan Problem List (1) Stroke-like symptoms: Status: Acute Assessment and plan: reassured him regarding the negative imaging study. MRI brain pending to confirm/rule out acute stroke.
[2024-07-04] VITALS: BP 110/57; PULSE 58; PULSE 61; RESP 14; TEMP 36.2; O2SAT 95
--- NOTE | 2024-07-04 | XR_ITS ---
Examination: MRI of brain without intravenous contrast. MRI brain with intravenous contrast. Date and time of exam:July 04, 2024 1042 hours INDICATIONS: Stroke alert, onset left-sided body weakness decreased vision in the left eye beginning June 29, 2024 Technique: Multiple axial and sagittal images of the brain to been obtained. Siemens high-resolution 1.52 [place] short bore scanner utilized. Sagittal sections, T1 weighted images, TR 500, TE 14, are performed. Axial sections proton-density and T2-weighted images have been obtained. Inversion recovery axial images, TR 9260, TE 111, TR 2500. Diffusion weighted images, axial sections, TR 4800, TE 128, B value 1000. Axial sections, ADC map, TR 4800, TE 128. Axial and coronal images were also obtained post 16 cc gadolinium administered intravenously. Findings:: Enlargement of the sella turcica is not present. The optic chiasm and infundibular stalk are not remarkable. There is no localized enlargement of the medulla or coco. Fourth ventricle and cerebellar tonsils appear normal in position. No subacute area of hemorrhage density is seen. Fourth ventricle is midline. Mass in the cerebellopontine angle region is not evident. 7th and 8th nerve complexes exhibit symmetry Globes are symmetrical Orbital musculature including medial lateral rectus muscles do not exhibit abnormality Increased white matter signal is evident, multiple scattered punctate foci increased signal in the cerebral white matter Effacement of the cortical sulcal markings is not identified. Mass effect upon the ventricular system is not identified. Diffusion-weighted images demonstrate no focus of restricted diffusion Contrast images demonstrate no abnormal enhancement Impression: Multiple punctate foci increased signal in the cerebral white matter, demyelinating disease pattern
[2024-07-04] MEDS: ACETAMINOPHEN 325 MG TABLET 650 MG PO ×3 (02:07→15:04)
[2024-07-04 04:00] VITALS: BP 119/86; PULSE 57; PULSE 61; RESP 17; TEMP 36.8; O2SAT 97
[2024-07-04] MEDS: HEPARIN SOD INJ 5000 UNIT/ML VIAL SC ×3 (05:05→21:23)
[2024-07-04 06:00] VITALS: BMI 27.8
[2024-07-04 06:17] LABS: Basophils # (Auto) 0.1 Thou/mm3 (0.0-0.2); Basophils % (Auto) 1 % (0-2.5); Eosinophils # (Auto) 0.3 Thou/mm3 (0.0-0.5); Eosinophils % (Auto) 4 % (0-10); Hemoglobin 14.9 g/dL (13.5-16.0); Immature Granulocytes % (Auto) 3 % (0-0); Lymphocytes # (Auto) 2.8 Thou/mm3 (1.0-4.8); Lymphocytes % (Auto) 40 % (10-50); Mean Corpuscular HGB Conc 33.1 g/dl (31.0-37.0); Mean Corpuscular Volume 85 fL (80-100); Monocytes # (Auto) 0.7 Thou/mm3 (0.0-0.8); Monocytes % (Auto) 9 % (0-12); Neutrophils % (Auto) 43 % (37-80); Nucleated Red Blood Cell % 0 /100 WBC (0); Platelet Count 220 Thou/mm3 (140-440); RDW Standard Deviation 39.4 fL (35.1-43.9); Red Blood Count 5.32 Miln/mm3 (4.50-5.90)
[2024-07-04 06:48] LABS: Anion Gap 7 (7-16); BUN/Creatinine Ratio 24 Ratio (12-20); Blood Urea Nitrogen 17 mg/dL (9-23); Calcium 9.3 mg/dL (8.3-10.6); Carbon Dioxide 24.8 mMol/L (20.0-31.0); Chloride 107 mMol/L (98-107); Creatinine (Component) 0.7 mg/dL (0.6-1.3); Estimated Creatinine Clearance 138.6 mL/min (>60); Glucose 116 mg/dL (74-106); Osmolality,Calculated 280 (275-295); Potassium 4.1 mMol/L (3.4-5.1); Sodium 139 mMol/L (136-145); eGFR > 60 See Note
[2024-07-04 08:00] VITALS: BP 133/74; PULSE 57; PULSE 58; RESP 14; TEMP 36.2; O2SAT 95
[2024-07-04] MEDS: CLOPIDOGREL BISULFATE 75 MG TABLET PO (08:12)
[2024-07-04] MEDS: ASPIRIN EC 81 MG TABEC PO (08:12)
[2024-07-04 12:00] VITALS: BP 111/80; PULSE 60; PULSE 62; RESP 15; TEMP 36.3; O2SAT 96
--- NOTE | 2024-07-04 14:25 | ESPR_ITS ---
<Statement entered by Wendy Purcell MD - 07/08/24 16:22> I reviewed above note and agree with findings and plans. I have also personally examined the patient with medicine team and went over assessment and plan with medical team including unpaid intern and resident physician. Documentation for date of: 07/04/24 Subjective Subjective Interval history: Patient was seen and examined at bedside. No acute overnight events. Patient reports his weakness in his left upper extremity has improved partially, however he still unable to move his left leg. Yesterday patient underwent CT of the head and CTA showing no abnormalities, in-house neurology was updated about findings. Patient had MRI of the brain with and without contrast showing multiple punctate foci increased signal in the cerebral white matter, demyelinating disease pattern. Neurology recommended to hold lumbar puncture until results for MRI are reviewed. Will continue current management and monitor patient. Exam Vital Signs Temp Pulse Resp BP Pulse Ox O2 Del Method 97.2 F 62 14 133/74 H 95 Room Air 07/04/24 08:00 07/04/24 12:00 07/04/24 08:00 07/04/24 08:00 07/04/24 08:00 07/04/24 08:00 Narrative Exam Gen: Well-developed male. HEENT: NCAT, PERRLA, EOMI, MMM, anicteric conjunctivae, poor dentition. CVS: normal S1 and S2. RRR. No M/R/G. Resp: CTA B/L. No rhonchi, rales, crackles or wheezing. Abd: soft, non-tender, non-distended. BS+ in all 4 quadrants. MSK: Good ROM in BUE & BLE. No edema or rash. Neuro: CN II-XII grossly intact. Strength 5/5 in RUE & RLE. Strength 3/5 in LUE and 2/5 in LLE. Alert and oriented x3. Psych: appropriate mood and affect. Objective Labs 07/04/24 05:42 07/04/24 05:42 Labs: Laboratory Results - last 24 hr 07/03/24 07/04/24 16:25 05:42 WBC 7.0 RBC 5.32 Hgb 14.9 Hct 45.0 MCV 85 MCH 28.0 MCHC 33.1 RDW Std Deviation 39.4 Plt Count 220 Neut % (Auto) 43 Lymph % (Auto) 40 [place] % (Auto) 9 Eos % (Auto) 4 Baso % (Auto) 1 Neut # (Auto) 3.0 Lymph # (Auto) 2.8 [place] # (Auto) 0.7 Eos # (Auto) 0.3 Baso # (Auto) 0.1 Immature Gran # (Auto) 0.20 H Absolute Nucleated RBC 0.00 Immature Gran % 3 H Nucleated RBC % 0 Sodium 139 Potassium 4.1 Chloride 107 Carbon Dioxide 24.8 Anion Gap 7 BUN 17 Creatinine 0.7 Estim Creat Clear Calc 138.6 eGFR > 60 BUN/Creatinine Ratio 24 H Glucose 116 H Calculated Osmolality 280 Calcium 9.3 Troponin I < 0.002 ABG Interpretation ABG results: 06/29/24 10:36 ABG pH 7.38 ABG pCO2 43 ABG pO2 89 ABG HCO3 25 ABG O2 Saturation 98 ABG Base Excess 0 Quality Measures Quality Measures VTE prophylaxis Assessment & Plan Assessment Current Active Medications: Generic Name Dose Route Start Last Admin Trade Name Freq PRN Reason Stop Dose Admin Acetaminophen 650 mg 06/29/24 11:41 Acetaminophen 325 Mg Tablet PO 07/29/24 11:40 Q6H PRN Fever >101.5 Acetaminophen 650 mg 06/29/24 11:41 07/04/24 08:11 Acetaminophen 325 Mg Tablet PO 07/29/24 11:40 650 mg Q6H PRN Administration PAIN SCALE 1-3 (mild Hydrocodone Bitart/Acetaminophen 1 tab 06/30/24 23:43 07/03/24 20:04 Hydrocodone/Apap 5/325 Tablet PO 07/05/24 23:42 1 tab Q6HR PRN Administration PAIN SCALE 4-10(Mod-Sev Aspirin 81 mg 06/30/24 09:00 07/04/24 08:12 Aspirin Ec 81 Mg Tabec PO 07/30/24 08:59 81 mg QDAY TINO Administration Atorvastatin Calcium 80 mg 07/04/24 21:00 Atorvastatin Calcium 20 Mg Tablet PO 07/29/24 20:59 HS TINO Clopidogrel Bisulfate 75 mg 07/04/24 09:00 07/04/24 08:12 Clopidogrel Bisulfate 75 Mg Tablet PO 08/03/24 08:59 75 mg QDAY TINO Administration Diphenhydramine HCl 25 mg 06/29/24 12:10 06/29/24 23:29 Diphenhydramine 25 Mg Capsule PO 07/29/24 12:14 25 mg Q6H PRN Administration Headache Heparin Sodium (Porcine) 5,000 unit 07/01/24 22:00 07/04/24 05:05 Heparin Sod Inj 5000 Unit/Ml Vial SC 07/14/24 05:59 5,000 unit Q8HR TINO Administration Labetalol HCl 5 mg 06/29/24 15:56 Labetalol Inj 5 Mg/Ml Vial 20 Ml IV Q15M PRN SBP>220 or DBP > 120. Ondansetron HCl 4 mg 06/29/24 09:44 Ondansetron Inj 2 Mg/Ml Inj 2 Ml IV 07/29/24 09:43 Q4HR PRN NAUSEA OR VOMITING Prochlorperazine Maleate 10 mg 06/29/24 12:08 06/29/24 23:36 Prochlorperazine Maleate 5 Mg Tablet PO 07/29/24 12:14 10 mg Q6H PRN Administration Headache Plan This is a 44-year-old male with PMHx of HTN, admitted for recurrent left-sided weakness and stroke. #Suspected demyelinating disease. #Stroke ruled out. #?TIA. Reports headache started 2 to 3 days ago associated with sudden onset of left- sided weakness that started this morning. He was in ED 2 days ago with similar symptoms, at the time. CT head was negative, no further interventions were done. Patient was discharged home. Denies fall, trauma, fever, chills, chest pain, shortness of breath, palpitations, GI or urinary symptoms. NIHSS of 4 on admission. On admission teleneuro was consulted who recommended admission for MRI and continued ASPIRIN. Echo: Negative bubble study.Normal left ventricular size and function. Approximate EF is 65%. MRI brain was suspicious for demyelinating disease and MRI Cervical spine negative for mild enhancement in the soft tissue around the posterior spinous processes C7, T1, T2, T3. 2/3 RR and stroke alert were called due to worsening Lt-sided weakness and vision loss in left eye. Tele neuro consulted, he was given Plavix [address] and CTA of the head and neck were negative. Repeat brain MRI was similar showing demyelinating disease pattern. Plan: ? Stroke protocol. ? Neurochecks q.4 hours. ? Head elevation >30 degrees. ? Physical therapy. ? Speech and swallow eval. ? Seizure precautions. ? Continue ASPIRIN 81 mg daily. ? Continue PLAVIX 75 mg daily. ? Continue ATORVASTATIN 80 mg daily. ? Continue DIPHENHYDRAMINE 25 q.6h. ? Continue PROCHLORPERAZINE 10 mg q.6h. PRN. ? Lipid panel with hypertriglyceridemia and hypercholesterolemia, with A1c 5.3 and TSH WNL, pending echo. ? Permissive hypertension <220/110. ? pending further neuro recs. #Hx of HTN. Currently normotensive. Allowing for permissive hypertensive Plan: ? Continue permissive HTN as above Health maintenance Diet: Regular diet GI prophylaxis: PROTONIX DVT prophylaxis: SCDs Antibiotics: Not indicated CODE STATUS: Full code Disposition: Pending neuro recs Plan of care discussed with attending Dr. Purcell. Diony Tobias MD, PGY 2. Disclaimer: This note was dictated by speech recognition. Minor errors in public health analyst may be present due to voice recognition software.
[2024-07-04 16:00] VITALS: BP 133/82; PULSE 58; PULSE 63; RESP 14; TEMP 36.6; O2SAT 95
[2024-07-04 19:28] LABS: CSF Cell Count Tube # Tube # 4; CSF Color Colorless (Colorless); CSF Red Blood Cell 1 /cmm; CSF White Blood Cell 0 /cmm; CSF, Appearance Clear (Clear)
[2024-07-04 19:39] LABS: Glucose,CSF 78 mg/dL (40-70); Protein Total,CSF 29 mg/dL (8-32)
[2024-07-04 20:00] VITALS: BP 119/76; PULSE 63; PULSE 74; RESP 16; TEMP 36.3; O2SAT 97
[2024-07-04] MEDS: ATORVASTATIN CALCIUM 20 MG TABLET 80 MG PO (21:22)
[2024-07-04 23:42] LABS: CSF Gram Stain Alert Gram Stain Completed
--- NOTE | 2024-07-04 23:50 | EVENTNT_ITS ---
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
--- NOTE | 2024-07-04 23:50 | PD.NEUROPROG ---
Documentation for date of: 07/04/24 Subjective Subjective Interval history: Patient was seen in telemetry today, continues to have left lower extremity weakness. Exam - Neurology Vital Signs Temp Pulse Resp BP Pulse Ox O2 Del Method 97.3 F 74 16 119/76 97 Room Air 07/04/24 20:00 07/04/24 20:00 07/04/24 20:00 07/04/24 20:00 07/04/24 20:00 07/04/24 20:00 Narrative Exam GENERAL APPEARANCE: Well hydrated, well-nourished in no acute distress. HEENT: Normocephalic, atraumatic, extraocular movements intact. Pupils: Equal reacting to light and accommodation NECK: Supple, no JVD or bruits. CARDIOVASULAR: Heart: S1, S2 heard, regular without S3-S4 or murmur no rubs or gallops. LUNGS/CHEST: Clear to auscultation bilaterally. No rails, rhonchi, or wheezing. Normal inspection. ABDOMEN: Soft, nontender, with normal bowel sounds. No pulsatile masses. No rebound, rigidity, or guarding. Normal inspection and palpation. EXTREMITIES: Normal inspection and palpation. No edema, clubbing or cyanosis. SKIN: Warm and dry without rashes. Normal inspection. MUSCULOSKELETAL: No cervical, thoracic, lumbar or midline bony tenderness. Normal inspection. Right upper extremity: Covered with cast and dressing NEURO: Alert, awake and oriented x3. Cranial nerves: II through XII grossly intact. Speech and language: Normal with no dysarthria or dysphasia. Motor system: Tone and bulk: Normal: Strength: Moves all extremities except the left lower extremity secondary to lack of effort, no pronator drift noted. Deep tendon reflexes: 2+ bilaterally symmetrical. Plantar reflex: Downgoing bilaterally. Sensory system: Intact to all modalities of sensation bilaterally. Coordination: Intact to [id number]-[id number] and uwio-vznk-[id number] test bilaterally. No ataxia, no dysmetria, or dysdiadochokinesia noted. No intention tremors noted. Gait: Cannot be tested. No signs of meningeal irritation noted. PSYCHIATRIC: Normal mood and affect. Objective Labs 07/04/24 05:42 07/04/24 05:42 Labs: Laboratory Results - last 24 hr 07/04/24 07/04/24 05:42 18:34 WBC 7.0 RBC 5.32 Hgb 14.9 Hct 45.0 MCV 85 MCH 28.0 MCHC 33.1 RDW Std Deviation 39.4 Plt Count 220 Neut % (Auto) 43 Lymph % (Auto) 40 [place] % (Auto) 9 Eos % (Auto) 4 Baso % (Auto) 1 Neut # (Auto) 3.0 Lymph # (Auto) 2.8 [place] # (Auto) 0.7 Eos # (Auto) 0.3 Baso # (Auto) 0.1 Immature Gran # (Auto) 0.20 H Absolute Nucleated RBC 0.00 Immature Gran % 3 H Nucleated RBC % 0 Sodium 139 Potassium 4.1 Chloride 107 Carbon Dioxide 24.8 Anion Gap 7 BUN 17 Creatinine 0.7 Estim Creat Clear Calc 138.6 eGFR > 60 BUN/Creatinine Ratio 24 H Glucose 116 H Calculated Osmolality 280 Calcium 9.3 CSF Appearance Clear CSF Color Colorless CSF WBC 0 CSF RBC 1 CSF Cell Count Tube # Tube # 4 CSF Mononuclear WBCs TNP CSF Polynuclear WBCs TNP CSF Glucose 78 H CSF Total Protein 29 ABG Interpretation ABG results: 06/29/24 10:36 ABG pH 7.38 ABG pCO2 43 ABG pO2 89 ABG HCO3 25 ABG O2 Saturation 98 ABG Base Excess 0 Assessment & Plan Assessment and plan (1) Stroke-like symptoms: Status: Acute Assessment and plan: Reassurance given to the patient regarding the negative MRI brain for acute stroke. It only showed nonspecific white matter changes, not significant MRI of the cervical spine showed no significant degenerative changes Continue with statin Continue to encourage him to move his left lower extremity
[2024-07-05] VITALS: BP 132/65; PULSE 63; PULSE 79; RESP 16; TEMP 36.5; O2SAT 99
[2024-07-05] MEDS: HYDROcodone/APAP 5/325 TABLET 1 TAB PO ×2 (02:23→09:53)
[2024-07-05 04:00] VITALS: BP 112/72; PULSE 55; PULSE 64; RESP 16; TEMP 36.6; O2SAT 97
[2024-07-05] MEDS: HEPARIN SOD INJ 5000 UNIT/ML VIAL SC (05:26)
[2024-07-05 05:46] VITALS: BMI 27.7
[2024-07-05 06:28] LABS: Basophils # (Auto) 0.1 Thou/mm3 (0.0-0.2); Basophils % (Auto) 1 % (0-2.5); Eosinophils # (Auto) 0.3 Thou/mm3 (0.0-0.5); Eosinophils % (Auto) 3 % (0-10); Hematocrit 46.4 % (41.0-53.0); Hemoglobin 15.7 g/dL (13.5-16.0); Immature Granulocytes % (Auto) 2 % (0-0); Immature Granulocytes Auto 0.21 Thou/mm3 (0.00-0.00); Lymphocytes # (Auto) 3.4 Thou/mm3 (1.0-4.8); Lymphocytes % (Auto) 36 % (10-50); Mean Corpuscular HGB Conc 33.8 g/dl (31.0-37.0); Mean Corpuscular Hemoglobin 28.1 pg (25.0-35.0); Mean Corpuscular Volume 83 fL (80-100); Monocytes # (Auto) 0.8 Thou/mm3 (0.0-0.8); Monocytes % (Auto) 8 % (0-12); Neutrophils # (Auto) 4.6 Thou/mm3 (1.8-7.7); Neutrophils % (Auto) 49 % (37-80); Nucleated Red Blood Cell % 0 /100 WBC (0); Platelet Count 209 Thou/mm3 (140-440); Red Blood Count 5.59 Miln/mm3 (4.50-5.90); White Blood Count 9.4 Thou/mm3 (3.8-10.6)
[2024-07-05 06:48] LABS: Coccid Serology, CF CSF (UCD)* See Sep Rpt
[2024-07-05 06:53] LABS: Anion Gap 8 (7-16); BUN/Creatinine Ratio 24 Ratio (12-20); Blood Urea Nitrogen 17 mg/dL (9-23); Calcium 9.4 mg/dL (8.3-10.6); Carbon Dioxide 23.9 mMol/L (20.0-31.0); Chloride 107 mMol/L (98-107); Creatinine (Component) 0.7 mg/dL (0.6-1.3); Estimated Creatinine Clearance 138.2 mL/min (>60); Glucose 103 mg/dL (74-106); Osmolality,Calculated 279 (275-295); Potassium 4.4 mMol/L (3.4-5.1); Sodium 139 mMol/L (136-145); eGFR > 60 See Note
[2024-07-05 08:00] VITALS: BP 98/61; PULSE 53; PULSE 56; RESP 14; TEMP 36.1; O2SAT 94
[2024-07-05] MEDS: ASPIRIN EC 81 MG TABEC PO (08:47)
[2024-07-05] MEDS: CLOPIDOGREL BISULFATE 75 MG TABLET PO (08:47)
--- NOTE | 2024-07-05 08:59 | PC.NURSE ---
Pt. reports pain in right hand, pt. aware pain medication next due at 1000, pt. agrees to wait.
[2024-07-05 11:45] VITALS: BP 112/71; PULSE 63; RESP 17; TEMP 36.1; O2SAT 93
[2024-07-05 11:50] VITALS: BP 115/72; PULSE 82; RESP 16; TEMP 36.6; O2SAT 96
--- NOTE | 2024-07-05 13:59 | ESDS_ITS ---
<Statement entered by Wendy Purcell MD - 07/12/24 17:34> I reviewed above note and agree with findings and plans. I have also personally examined the patient with medicine team and went over assessment and plan with medical team including software intern and resident physician. <Statement entered by Gagan Catalan MD - 07/05/24 16:27> Patient was examined with the team including attending physician. Note reviewed, I agree with the discharge plan as documented. - Gagan Catalan M.D. PGY2 Planned Discharge Date 07/05/24 DS: Providers Provider Date of admission: 06/29/24 11:41 Primary care physician: Justo Titus MD Admitting Provider: Juan Interiano MD Attending Provider on Admission: Wendy Purcell MD Consults: 06/29/24 09:44 Consult to Neurology / Tele-Neurology Routine Comment: Consulting Provider: [facility] 06/29/24 11:47 Referral Physical Therapy Stat Comment: Physician Instructions: Referral Speech Therapy Stat Comment: 06/29/24 14:20 Consult to Neurology / Tele-Neurology Routine Comment: Consulting Provider: Sandeep Cota Attending Provider on DC: Jarrett Hernandez MD Discharging Provider: Jarrett Hernandez MD DS: Diagnosis Problem List Completed Was Problem List Reviewed/Reconciled?: Yes Hospital Course Hospital Course Hospital course: The patient is a 44-year-old male with a past medical history of hypertension who presented to the ED on 06/29/2024 with left-sided weakness and numbness that started about 30 minutes prior to presentation. Additionally, he reported a headache before the onset of his symptoms as well as diminished vision in his left eye which he described as blindness. Prior to this, the patient had presented to the ED about 2 days with similar [id number]-[id number]-audtf weakness only. CT head and CTA head and neck was negative as well as MRI and MRI cervical spine showed some soft tissue around the posterior spinous processes of C7-T3. Neurology was consulted and recommended to continue high intensity statin. On 07/03/2024 rapid response was called as the patient complained of chest pain was worsened by deep breathing and sternal palpation as well as numbness in his left lower extremity and worsening weakness. Teleneuro was consulted and again patient had CT head/CTA which was negative. He was given Plavix 300 mg x 1 and recommended to have follow-up MRI and lumbar puncture to rule out any demyelinating disease. MRI was unchanged from previous and lumbar puncture was done on 07/04/2024. Current CSF findings unremarkable, pending results of all studies. Today, patient is hemodynamically stable, he still does have some weakness but no headache or vision loss. Has been cleared for discharge by neurology. To continue on atorvastatin 80 mg daily and Cymbalta 30 mg. He is recommended to follow-up with his PCP within 1 week of discharge and neurologist Dr. Calderon within 2 weeks of discharge. All questions and concerns were addressed. #Left-sided hemiparesis and hemiplegia, surgeon #Complex migraine #Stroke ruled out Case was discussed with Dr Catalan PGY-2 and attending physician, Dr Binh Hernandez MD PGY-1 Status at Discharge Overall status at discharge: patient is progressing back to baseline Time Spent with Patient Time attestation: Total time spent providing and/or coordinating discharge services: Time spent: Greater than 30 minutes Exam Vital Signs Temp Pulse Resp BP Pulse Ox O2 Del Method 98 F 82 16 115/72 96 Room Air 07/05/24 11:50 07/05/24 11:50 07/05/24 11:50 07/05/24 11:50 07/05/24 11:50 07/05/24 11:50 Narrative Exam Gen: Well-developed male. HEENT: NCAT, PERRLA, EOMI, MMM, anicteric conjunctivae, poor dentition. CVS: normal S1 and S2. RRR. No M/R/G. Resp: CTA B/L. No rhonchi, rales, crackles or wheezing. Abd: soft, non-tender, non-distended. BS+ in all 4 quadrants. MSK: Good ROM in BUE & BLE. No edema or rash. Neuro: CN II-XII grossly intact. Strength 5/5 in RUE & RLE. Strength 3/5 in LUE and 2/5 in LLE. Alert and oriented x3. Psych: appropriate mood and affect. Discharge Plan Plan Patient Disposition: Xfer Skilled Nsg Fac (SNF) Disposition Comment: Acute rehab Care Plan Goals: Please follow-up with your primary care doctor within 1 week of discharge. Please follow-up with neurologist Dr. Cota within 2 weeks. call for an appointment at [phone] You have been started on: -Acetaminophen 650 mg every 6 hourly as needed for pain -Atorvastatin 80 Mg daily at night -Cymbalta 30mg daily to be continued -Diphenhydramine 25 Mg along with prochlorperazine 10 Mg every 6 hourly as needed for headache -Continue taking all other medicines as prescribed -Recommended to return back to emergency department if your symptoms persists or worsens Prescriptions/Referrals Prescriptions/Med Rec: New prochlorperazine maleate 5 mg Tablet 10 mg PO Q6H PRN (Reason: Headache) 10 Days Qty: 30 0RF diphenhydramine HCl [Banophen] 25 mg Capsule 25 mg PO Q6H PRN (Reason: Headache) 10 Days Qty: 30 0RF atorvastatin 80 mg tablet 80 mg PO HS 30 Days Qty: 30 2RF acetaminophen 325 mg Tablet 650 mg PO Q6H PRN (Reason: pain) 30 Days Qty: 60 0RF duloxetine [Cymbalta] 30 mg capsule,delayed release(DR/EC) 30 mg PO QDAY 30 Days Qty: 30 3RF Referrals: Justo Titus MD [Primary Care Provider] - Sandeep Cota MD [Physician] - Patient/Caregiver Discharge Instructions Discharge Activity: as per physical therapy Education Materials: Anxiety Disorders Tx Therapy, Treating Anxiety Disorders ... Print Language: Bangladeshi Stand Alone Forms: Kamla Award Info., Patient Portal Info Letter Discharge Order Discharge Orders: Discharge (Routine); Ordered 07/05/24 Ordered By: Jarrett Hernandez Quality Discharge Quality Measures VTE prophylaxis
--- NOTE | 2024-07-05 14:56 | PC.SS ---
Follow up note: SS met with patient at bedside to discuss final d/c plans. Patient has wheelchair at bedside. Delivered by [facility]. Patient asked me to speak with his activities officer, Arina Callejas. She confirmed patient will d/c to [facility]. The staff will warp picker patient and he cannot have any pain meds. Nursing to update probation on list of d/c meds. D/c today
[2024-07-09 15:32] LABS: Albumin, CSF 14.9 mg/dL (8.0-42.0); IgG Index, CSF 0.42 (<0.70); IgG, CSF 1.5 mg/dL (0.8-7.7); IgG, Serum 926 mg/dL (600-1640)
[2024-07-11 06:44] LABS: Albumin, Serum 3.9 g/dL (3.6-5.1)
[2024-07-11 06:55] LABS: VDRL, CSF Qual* NON-REACTIVE
[2024-07-12 06:49] LABS: Oligoclonal Bands, CSF* ABSENT (ABSENT)
[2024-07-14 06:29] LABS: Angiotensin Convert Enz, CSF* <5 U/L (< OR = 15); Myelin Basic Protein, CSF* <2.0 mcg/L (< OR = 4.0)
== END 2024-07-05 11:50 | disposition skilled nursing facility (03) | DRG 58 ==
LOC: SERX 10:51 → SERHOLD 12:18 → S2NX 20:55 → S3SX 07-01 06:30 → S2NX 07-03 18:04
PROVIDERS: Psychiatry & Neurology Neurology; Student in an Organized Health Care Education/Training Program; Admitting Provider Student in an Organized Health Care Education/Training Program; Emergency Provider Emergency Medicine; PCP Family Medicine; Visit Provider Internal Medicine
DX: G81.94 Hemiplegia, unspecified affecting left nondominant side (principal); G43.109 Migraine with aura, not intractable, without status migrainosus; H54.62 Unqualified visual loss, left eye, normal vision right eye; I10 Essential (primary) hypertension; E78.1 Pure hyperglyceridemia; E78.00 Pure hypercholesterolemia, unspecified; Z79.899 Other long term (current) drug therapy; Z65.3 Problems related to other legal circumstances; Z75.1 Person awaiting admission to adequate facility elsewhere
CPT/HCPCS: 36415; 36600; 70450; 70496; 70498; 70544; 70553; 71045; 72156; 80048; 80053; 80061; 80307; 80320; 82040; 82042; 82164; 82784; 82803; 82945; 83036; 83735; 83873; 83916; 84100; 84157; 84443; 84484; 85025; 85610; 85730; 86171; 86592; 87070; 87205; 89051; 92526; 93005; 93225; 93306; 97162; 99285; A4649; A9579; J1643; J1885; J3475; J7030; Q0164; Q9967; A9270; G0480

== ENCOUNTER 2024-07-09 19:05 | Emergency (ER) | payer MEDICAID, SELFPAY ==
[2024-07-09 19:38] VITALS: BP 126/76; PULSE 67; RESP 18; TEMP 36.6; O2SAT 100
--- NOTE | 2024-07-09 19:52 | XR_ITS ---
Examination: Wrist, right 2 views Technique: Wrist AP, lateral 2 views Date and time of exam: July 19, 2024 1955 hrs. Indications: Patient fell today with injury to the wrist, wrist pain. Findings: No acute fracture No dislocation Impression: No definite acute fracture Suggest follow-up coned view of the navicular as clinically warranted
[2024-07-09] MEDS: IBUPROFEN TAB 600 MG TABLET PO (19:56)
[2024-07-09] MEDS: ACETAMINOPHEN 500 MG TABLET 1000 MG PO (19:57)
--- NOTE | 2024-07-09 20:24 | EDNOTE_ITS ---
Upper Extremity Injury RME/HPI General Chief Complaint: Extremity Injury, Upper Stated Complaint: FELL, RIGHT ARM PAIN Time Seen by Provider: 07/09/24 19:44 Source: patient Arrival date/time: 07/09/24 19:05 Mode of arrival: ambulatory Limitations: no limitations RME / HPI RME / HPI narrative: Dr. Segura?s Main ED Evaluation: 44-year-old male who presents to the emergency department with complaints of right wrist pain. He reports that he sustained a ground-level fall and was previously evaluated at [facility], where he was diagnosed with a right wrist fracture. He was treated with a short arm splint at that time. Today, the patient states that he was taking a shower when he slipped on the wet floor and fell, landing on his right wrist. Since the fall, he has experienced worsening pain in the wrist. He denies any other injuries from the incident. The patient denies loss of consciousness, head trauma, neck pain, or focal neurological symptoms such as weakness, numbness, or tingling. He also reports no dizziness or confusion. Related Data Previous Rx's ?Medication ?Instructions ?Recorded acetaminophen 325 mg tablet 650 mg (2 x 325 mg) PO Q6H PRN 06/30/24 pain 30 days #60 tabs atorvastatin 80 mg tablet 80 mg PO HS 30 days #30 tabs 06/30/24 diphenhydramine HCl 25 mg capsule 25 mg PO Q6H PRN Hea dache 10 days 06/30/24 (Banophen) #30 caps prochlorperazine maleate 5 mg 10 mg (2 x 5 mg) PO Q6H PRN 06/30/24 tablet Headache 10 days #30 tabs duloxetine 30 mg capsule,delayed 30 mg PO QDAY 30 days #30 caps 07/01/24 release (Cymbalta) acetaminophen 500 mg tablet 1,000 mg (2 x 500 mg) PO Q 6H PRN 07/09/24 pain #30 tabs ibuprofen 600 mg tablet 600 mg PO Q6H PRN pain #20 t abs 07/09/24 Allergies Allergy/AdvReac Type Severity Reaction Status Date / Time No Known Allergies Allergy Verified 07/09/24 19:10 Review of Systems Review of Systems Systems Reviewed: All systems reviewed, normal except as documented Past Medical History Past Medical History CARDIAC: Positive Hypercholesterolemia and Hypertension; Negative Congestive Heart Failure RESPIRATORY: Negative Chronic Obstructive Pulmonary Disease (COPD) GENITOURINARY: Negative Renal Disease MUSCULOSKELETAL: Positive Musculoskeletal Disorders ENDOCRINE: Negative Diabetes Mellitus Type 1 or Diabetes Mellitus Type 2 Social History SMOKING STATUS: Current every day smoker ED Exam Narrative Physical exam: GENERAL APPEARANCE: alert and oriented x 4, well-developed, well-nourished, no acute distress VITALS: All vitals were reviewed and the pulse ox is 100% on room air, which is normal according to my interpretation. HEENT: Normocephalic, atraumatic; pupils equal, round, reactive to light; EOMI; mucous membranes pink, moist; oropharynx clear NECK: Supple LUNGS: CTABL; no wheezes, no rales, no rhonchi HEART: Regular rate, regular rhythm; normal S1, S2; no murmurs ABDOMEN: non distended; normal BS; soft, no tenderness, no guarding, no rebound; no masses, no organomegaly, no hernia BACK: no CVA tenderness EXTREMITIES: atraumatic; no edema NEUROLOGIC: awake; alert and oriented x4; cranial nerves II-XII grossly intact; no focal sensory or motor deficits PSYCHIATRIC: appropriate mood and affect SKIN: warm, dry, normal color; no rashes General Limitations: Present no limitations Course Quality Measures none Orders Category Date Time Status Miscellaneous Nursing Order NOW Care 07/09/24 20:23 Completed XR wrist RT 2V Stat Exams 07/09/24 19:52 Completed Acetaminophen Tab [Tylenol ES Tab] Med 07/09/24 19:52 Discontinued 1,000 mg PO X1 ONE Ibuprofen Tab [Motrin Tab] Med 07/09/24 19:52 Discontinued 600 mg PO X1 ONE Vital Signs Vital signs: Vital Signs Temperature 98 F 07/09/24 19:38 Pulse Rate 67 07/09/24 19:38 Respiratory Rate 18 07/09/24 19:38 Blood Pressure 126/76 07/09/24 19:38 Pulse Oximetry (%) 100 07/09/24 19:38 Extremity Injury MDM Narrative MDM Narrative:: Patient is a 44-year-old male who presents emergency department complaining of right wrist pain. Patient states he had a ground-level fall and went [facility]. He states he was diagnosed with a right wrist fracture and is wearing a short arm splint. Patient states that he was taking a shower, slipped on the floor and fell onto his right wrist. Now with greater pain. No other injuries. No loss of consciousness. No head strike or neck pain. No focal neurologic complaints. The plain films show no obvious fractures. There may be a well-healing right scaphoid fracture Will replace the splint. Will prescribe Motrin and Tylenol and patient to be discharged Scribe Attestation: I, Franki Sorto, am scribing for and in the presence of Dr. Segura. Provider Notation: Although this document has been carefully reviewed, there may still be some phonetic and other typographical errors. These errors are purely grammatical due to imperfections in the software program and should not be construed in any way to compromise the substance of the patient's medical care during this visit. Patient data External records reviewed:: [facility] previous records Clinical information provided by:: patient Social determinants that could affect healthcare access:: none Patient has the following chronic illnesses:: see PMH How is presenting disease/condition affected by chronic disease/condition?: uneffected by Evaluation data The following diagnostics were reviewed and interpreted by me:: lab results and radiology exam(s) Lab and/or radiology exams considered but not ordered:: n/a Interpretation Summary: I personally reviewed the radiology data and agree with the radiologist's interpretation. Examination: Wrist, right 2 views Technique: Wrist AP, lateral 2 views Date and time of exam: July 19, 2024 1955 hrs. Indications: Patient fell today with injury to the wrist, wrist pain. Findings: No acute fracture No dislocation Impression: No definite acute fracture Suggest follow-up coned view of the navicular as clinically warranted Dictated By: Balaji Ramsey MD Medications / Prescriptions Medications or Prescriptions considered but not ordered:: n/a Medication administrations:: Medication Administration History Discontinued Medications Acetaminophen (Acetaminophen 500 Mg Tablet) 1,000 mg PO X1 ONE Stop: 07/09/24 19:53 Last Admin: 07/09/24 19:57 Dose: 1,000 mg Documented By: Ibuprofen (Ibuprofen Tab 600 Mg Tablet) 600 mg PO X1 ONE Stop: 07/09/24 19:53 Last Admin: 07/09/24 19:56 Dose: 600 mg Documented By: as above Consultations Consultation(s) initiated? (list below): No Diagnosis Upper Extremity Injury Differential Diagnosis: sprain and strain of wrist, fracture of wrist, finger sprain and dislocation of shoulder Most likely diagnosis given after review of the tests above:: see clinical impression below Admission Indicated Admission indicated?: not indicated Admission Request Was there a request for admission?: No Disposition Plan Disposition Plan: Discharge Discharge Attestation Discharge Attestation: The patient and all family members were given an opportunity to ask questions and understood the discharge instructions. Discharge instructions specifically effects, indications for sooner follow up or return to the emergency department, and the expected course of current diagnosis. Patient condition: Stable Discharge Plan Plan Patient Disposition: HOME (Self Care) Disposition Comment: Stable for discharge Patient condition on transfer: Stable Prescriptions/Referrals Prescriptions/Med Rec: New acetaminophen 500 mg tablet 1,000 mg PO Q6H PRN (Reason: pain) Qty: 30 0RF ibuprofen 600 mg tablet 600 mg PO Q6H PRN (Reason: pain) Qty: 20 0RF No Action prochlorperazine maleate 5 mg Tablet 10 mg PO Q6H PRN (Reason: Headache) 10 Days Qty: 30 0RF diphenhydramine HCl [Banophen] 25 mg Capsule 25 mg PO Q6H PRN (Reason: Headache) 10 Days Qty: 30 0RF atorvastatin 80 mg tablet 80 mg PO HS 30 Days Qty: 30 2RF acetaminophen 325 mg Tablet 650 mg PO Q6H PRN (Reason: pain) 30 Days Qty: 60 0RF duloxetine [Cymbalta] 30 mg capsule,delayed release(DR/EC) 30 mg PO QDAY 30 Days Qty: 30 3RF Referrals: [facility] [Outside] - In 1 week Edwin Hinton MD [Physician] - In 1 week Problem List Clinical Impression: Sprain and strain of wrist Patient/Caregiver Discharge Instructions Discharge Activity: activity as tolerated Education Materials: Understanding a Wrist Sprain, ED Wrist Sprain Additional Instructions: Please return to the emergency department for any worsening or any further medical problems. Otherwise you should follow-up with your primary care doctor or in the [facility] within the next several days. Also you should call Dr. Kwan. He is the orthopedic surgeon on-call. This is a bone specialist. If you are having further pain past several days from now please call his office to make an appointment. Print Language: Lao Stand Alone Forms: Kamla Award Info., Patient Portal Info Letter
== END 2024-07-09 20:53 | disposition home or self-care (01) ==
PROVIDERS: Emergency Provider Emergency Medicine
DX: S63.501A Unspecified sprain of right wrist, initial encounter (principal); S66.911A Strain of unspecified muscle, fascia and tendon at wrist and hand level, right hand, initial encounter; I10 Essential (primary) hypertension; E78.00 Pure hypercholesterolemia, unspecified; F17.210 Nicotine dependence, cigarettes, uncomplicated; W18.30XA Fall on same level, unspecified, initial encounter; Y93.E1 Activity, personal bathing and showering
CPT/HCPCS: 73100; 99283; A9270

== ENCOUNTER 2024-07-25 15:41 | Emergency (ER) | payer MEDICAID, SELFPAY ==
[2024-07-25 15:52] VITALS: BP 125/81; PULSE 73; RESP 20; TEMP 36.8; O2SAT 97
--- NOTE | 2024-07-25 16:00 | XR_ITS ---
EXAMINATION: Ankle, left 3 views . Technique: Ankle AP, oblique, lateral 3 views Date and time of exam: July 25, 2024 1637 hrs. Indications: Injury to the ankle 2 days ago, ankle pain. Findings: No fracture or ankle dislocation No foreign body Impression: No acute fracture
--- NOTE | 2024-07-25 16:00 | EKG_ITS ---
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
--- NOTE | 2024-07-25 16:00 | XR_ITS ---
Examination: Foot, left, 3 views Technique: AP, oblique, lateral views foot, 3 views Date and time of exam: July 25, 2024 1632 hrs. Indications: Injury to the foot 2 weeks ago, foot pain Findings: No acute fracture No dislocation No foreign body Impression: No acute fracture
--- NOTE | 2024-07-25 16:00 | XR_ITS ---
Examination: AP chest single view Technique: Sitting AP chest portable single view Exam date and time: July 25, 2024 1628 hrs. Comparison July 03, 2024 Indications: Injury to chest 2 weeks ago, chest pain Findings: Normal heart size No pneumothorax Clavicles ribs appear intact Impression: No pneumothorax pulmonary contusion or hemothorax
--- NOTE | 2024-07-25 16:00 | XR_ITS ---
Examination: CT brain head without contrast. 2-D sagittal coronal reconstructions Date and time of exam:July 25, 2024 1645 hrs. Indications: Onset headaches with left-sided body weakness today CTDI: vol (mGy):49.3 DLP: (mGycm):936 Technique: Multiple CT axial sections of the brain have been obtained, 5 mm slice thickness. Contrast has not been administered. 2-D sagittal, coronal reconstructions have been obtained Low dose protocols were performed. One or more of the following dose reduction techniques were used; automated exposure control, adjustment of the mA and/or KV according to patient size, use of iterative reconstruction technique. Findings: No significant ventricular enlargement. Intra-axial or extra-axial hemorrhage density is not seen. No mass effect or midline shift Basal cisterns are not remarkable. Fourth ventricle is midline. Cranial vault intact. Impression: Negative for acute hemorrhage, mass effect or midline shift As clinically warranted, brain MRI follow-up would best assess for acute ischemic change
--- NOTE | 2024-07-25 16:03 | EDNOTE_ITS ---
ED SOB =RME/HPI General Chief Complaint: Shortness of Breath/Dyspnea Stated Complaint: HEADACHE Time Seen by Provider: 07/25/24 15:49 Arrival date/time: 07/25/24 15:41 RME / HPI RME / HPI Narrative: This section includes all my notes and documentations, including HPI, PE, and ED course.? Joe Snow MD HPI: 44 year old male with history of hypertension, hyperlipidemia presents to the ED [facility] for evaluation of feeling short of breath and anxious today. 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 While in the ED also complains of I can barely feel by body with left-sided weakness. Patient states he woke up at 06:00 AM today and did not have any weakness. Per medics, patient was able to walk to the [facility] with no deficits. no other complaints. ROS: All negative except as documented in HPI. Physical Exam: General:? Alert and oriented.? No acute distress when remaining still.?? Eyes:? Conjunctivae and lids clear.? PERRL. EOMI. ENT:? No nasal congestion.? Neck:? Supple.? No carotid bruit. No JVD. Heart:? RRR.? Lungs:? No respiratory distress.? Good air movement.? No rhonchi, wheezing, rales.?? Abdomen:? Soft and nontender.?? Skin:? Warm and dry.?? Neuro:? Alert and oriented X 3.??No peripheral motor deficits. Cranial nerves II to XII grossly normal. Musculoskeletal: Left walking boot noted. He reports he injured it during police encounter several days ago. Boot was placed due to left ankle/foot injury at another emergency room. I reviewed all diagnostic test results. My interpretation of the EKG is?sinus rhythm with no acute ST?T changes. My interpretation of the chest x-ray is no acute findings. My interpretation of the left foot/ankle x-rays is no acute fracture. My review of the head CT report is?no acute findings. Blood tests and urine tests?unremarkable. At this point, diagnoses include?conversion disorder. He remained stable. Recommended outpatient psychiatric workup. Based on my best medical judgment, made decision no further evaluation or treatment indicated at this time.? Patient understands and agrees to the discharge instructions customized and printed, see below. Discharge Instructions from Dr. Snow printed for you: 1. After extensive evaluation today (and reviewing extensive evaluation when you were hospitalized here for over a week), there is no life-threatening condition. Such as stroke or brain tumor or heart attack. 2. Your symptoms are psychogenic, meaning they are caused by psychiatric problem. 3. See a private doctor on 07/26/2024 for recheck and further care. Ask to review all test results and official radiology reports, to make sure you receive all necessary follow-ups and monitoring, including your left foot/ankle x-rays which did not show any broken bone. Ask for help with your frequent ER visits with your symptoms you presented today with more care not available here in the ER, including referral to see psychiatric specialists and counselors. 4. Seek immediate medical care with worsening or with any concerns. Joe Snow MD Related Data Previous Rx's ?Medication ?Instructions ?Recorded acetaminophen 325 mg tablet 650 mg (2 x 325 mg) PO Q6H PRN 06/30/24 pain 30 days #60 tabs atorvastatin 80 mg tablet 80 mg PO HS 30 days #30 tabs 06/30/24 duloxetine 30 mg capsule,delayed 30 mg PO QDAY 30 days #30 caps 07/01/24 release (Cymbalta) acetaminophen 500 mg tablet 1,000 mg (2 x 500 mg) PO Q 6H PRN 07/09/24 pain #30 tabs ibuprofen 600 mg tablet 600 mg PO Q6H PRN pain #20 t abs 07/09/24 Allergies Allergy/AdvReac Type Severity Reaction Status Date / Time No Known Allergies Allergy Verified 07/09/24 19:10 Review of Systems Review of Systems Systems Reviewed: All systems reviewed, normal except as documented Past Medical History Past Medical History CARDIAC: Positive Hypercholesterolemia and Hypertension; Negative Congestive Heart Failure RESPIRATORY: Negative Chronic Obstructive Pulmonary Disease (COPD) GENITOURINARY: Negative Renal Disease MUSCULOSKELETAL: Positive Musculoskeletal Disorders ENDOCRINE: Negative Diabetes Mellitus Type 1 or Diabetes Mellitus Type 2 Social History SMOKING STATUS: Never smoker ED Exam Narrative Physical exam: As noted in HPI Course Quality Measures none Orders Category Date Time Status EKG (ED ONLY) *Do not use* NOW Care 07/25/24 16:00 Completed Straight [In and Out Catheter] X1 Care 07/25/24 15:[address] head/brain wo con Stat Exams 07/25/24 16:00 Completed EKG (ED Only) Stat Exams 07/25/24 16:00 Draft XR ankle comp LT min 3V Stat Exams 07/25/24 16:00 Completed XR chest 1V portable Stat Exams 07/25/24 16:00 Completed XR foot comp LT min 3V Stat Exams 07/25/24 16:00 Completed CBC Stat Lab 07/25/24 16:10 Completed CMP [Comprehensive Metabolic Panel] Stat Lab 07/25/24 16:10 Completed CRP [C-Reactive Protein] Stat Lab 07/25/24 16:10 Completed Drug Screen,Urine Stat Lab 07/25/24 17:16 Completed ESR [Sed Rate (ESR)] Stat Lab 07/25/24 16:10 Completed Magnesium Stat Lab 07/25/24 16:10 Completed PT [Prothrombin Time with INR] Stat Lab 07/25/24 16:10 Completed PTT [Partial Thromboplastin Time] Stat Lab 07/25/24 16:10 Completed Procalcitonin Stat Lab 07/25/24 16:10 Completed TSH [Thyroid Stimulating Hormone] Stat Lab 07/25/24 16:10 Completed Troponin I Stat Lab 07/25/24 16:10 Completed ALPRazoLAM [Xanax] Med 07/25/24 15:59 Discontinued 0.5 mg PO X1 ONE Vital Signs Vital signs: Vital Signs Temperature 98.2 F 07/25/24 15:52 Pulse Rate 73 07/25/24 15:52 Respiratory Rate 20 07/25/24 15:52 Blood Pressure 125/81 07/25/24 15:52 Pulse Oximetry (%) 97 07/25/24 15:52 Oxygen Delivery Method Room Air 07/25/24 15:52 Pulse ox is 97% on room air which is adequate. Shortness of Breath / Dyspnea MDM Narrative MDM Narrative:: Jocelyn Zavala am scribing for and in the presence of Dr. Snow. Patient data External records reviewed:: [facility] previous records (I reviewed ED visit on 07/09/2024) and EMS form Clinical information provided by:: patient and EMS Social determinants that could affect healthcare access:: none Patient has the following chronic illnesses:: HTN, HLD How is presenting disease/condition affected by chronic disease/condition?: uneffected by Evaluation data The following diagnostics were reviewed and interpreted by me:: lab results, radiology exam(s) and EKG tracing(s) (My interpretation of the EKG is: Sinus rhythm (65 bpm) with nonspecific ST-T changes. Joe Snow MD) Lab and/or radiology exams considered but not ordered:: None Interpretation Summary: Normal diagnostics Medications / Prescriptions Medications or Prescriptions considered but not ordered:: None Medication administrations:: Medication Administration History Discontinued Medications Alprazolam (Alprazolam 0.25 Mg Tablet) 0.5 mg PO X1 ONE Stop: 07/25/24 16:00 Last Admin: 07/25/24 17:10 Dose: Not Given Documented By: NATE Non-Admin Reason: Cancelled by Provider None Consultations Consultation(s) initiated? (list below): No Diagnosis Shortness of Breath Differential Diagnosis: acute exacerbation of chronic obstructive airways disease, congestive heart failure, community acquired pneumonia, pulmonary embolism and other (CVA, TIA ) Most likely diagnosis given after review of the tests above:: Conversion disorder Admission Indicated Admission indicated?: not indicated Explain why admission is indicated or not indicated:: There was no indication for medical admission. Admission Request Was there a request for admission?: No Disposition Plan Disposition Plan: Discharge Discharge Attestation Discharge Attestation: The patient and all family members were given an opportunity to ask questions and understood the discharge instructions. Discharge instructions specifically effects, indications for sooner follow up or return to the emergency department, and the expected course of current diagnosis. Patient condition: Stable Discharge Plan Plan Patient Disposition: HOME (Self Care) Prescriptions/Referrals Prescriptions/Med Rec: No Action atorvastatin 80 mg tablet 80 mg PO HS 30 Days Qty: 30 2RF acetaminophen 325 mg Tablet 650 mg PO Q6H PRN (Reason: pain) 30 Days Qty: 60 0RF duloxetine [Cymbalta] 30 mg capsule,delayed release(DR/EC) 30 mg PO QDAY 30 Days Qty: 30 3RF acetaminophen 500 mg tablet 1,000 mg PO Q6H PRN (Reason: pain) Qty: 30 0RF ibuprofen 600 mg tablet 600 mg PO Q6H PRN (Reason: pain) Qty: 20 0RF Problem List Clinical Impression: Psychiatric problem Patient/Caregiver Discharge Instructions Discharge Activity: activity as tolerated Education Materials: ED Conversion Disdr Conversion Reac Additional Instructions: Discharge Instructions from Dr. Snow printed for you: 1. After extensive evaluation today (and reviewing extensive evaluation when you were hospitalized here for over a week), there is no life-threatening condition. Such as stroke or brain tumor or heart attack. 2. Your symptoms are psychogenic, meaning they are caused by psychiatric problem. 3. See a private doctor on 07/26/2024 for recheck and further care. Ask to review all test results and official radiology reports, to make sure you receive all necessary follow-ups and monitoring, including your left foot/ankle x-rays which did not show any broken bone. Ask for help with your frequent ER visits with your symptoms you presented today with more care not available here in the ER, including referral to see psychiatric specialists and counselors. 4. Seek immediate medical care with worsening or with any concerns. Print Language: Israeli Stand Alone Forms: Kamla Award Info., Patient Portal Info Letter
[2024-07-25 16:22] VITALS: PULSE 69; RESP 20; O2SAT 97
[2024-07-25 16:26] LABS: Basophils # (Auto) 0.1 Thou/mm3 (0.0-0.2); Basophils % (Auto) 1 % (0-2.5); Eosinophils # (Auto) 0.3 Thou/mm3 (0.0-0.5); Eosinophils % (Auto) 3 % (0-10); Hematocrit 40.6 % (41.0-53.0); Immature Granulocytes % (Auto) 1 % (0-0); Immature Granulocytes Auto 0.14 Thou/mm3 (0.00-0.00); Lymphocytes # (Auto) 3.1 Thou/mm3 (1.0-4.8); Lymphocytes % (Auto) 29 % (10-50); Mean Corpuscular HGB Conc 34.5 g/dl (31.0-37.0); Mean Corpuscular Hemoglobin 28.2 pg (25.0-35.0); Mean Corpuscular Volume 82 fL (80-100); Monocytes # (Auto) 1.1 Thou/mm3 (0.0-0.8); Monocytes % (Auto) 10 % (0-12); Neutrophils # (Auto) 5.9 Thou/mm3 (1.8-7.7); Neutrophils % (Auto) 56 % (37-80); Nucleated Red Blood Cell % 0 /100 WBC (0); Platelet Count 196 Thou/mm3 (140-440); RDW Standard Deviation 38.4 fL (35.1-43.9); Red Blood Count 4.97 Miln/mm3 (4.50-5.90); White Blood Count 10.7 Thou/mm3 (3.8-10.6)
[2024-07-25 16:38] LABS: INR 0.9 (0.9-1.3); Partial Thromboplastin Time 23.9 Seconds (22.0-36.0); Prothrombin Time 10.3 Seconds (9.0-12.2)
[2024-07-25 17:35] LABS: Alanine Aminotransferase 33 U/L (10-49); Albumin, Serum 3.9 gm/dL (3.5-5.0); Albumin/Globulin Ratio 1.8 (1.2-2.2); Anion Gap 7 (7-16); Aspartate Amino Transferase 17 U/L (0-34); BUN/Creatinine Ratio 33 Ratio (12-20); Bilirubin,Total 0.3 mg/dL (0.3-1.2); Blood Urea Nitrogen 20 mg/dL (9-23); C-Reactive Protein < 0.4 mg/dL (0.0-0.9); Calcium 9.3 mg/dL (8.3-10.6); Calcium (Corrected) 9.4 mg/dL (8.5-10.1); Carbon Dioxide 24.6 mMol/L (20.0-31.0); Chloride 108 mMol/L (98-107); Creatinine (Component) 0.6 mg/dL (0.6-1.3); Globulin 2.2 gm/dL (2.3-3.5); Glucose 108 mg/dL (74-106); Magnesium 1.8 mg/dL (1.6-2.6); Osmolality,Calculated 283 (275-295); Potassium 3.9 mMol/L (3.4-5.1); Procalcitonin 0.04 ng/ml (0.0-0.49); Sodium 140 mMol/L (136-145); Thyroid Stimulating Hormone 1.54 uIU/mL (0.55-4.78); Total Protein 6.1 gm/dL (5.7-8.2); Troponin I < 0.002 ng/mL (0.0-0.045); eGFR > 60 See Note
[2024-07-25 17:54] LABS: Amphetamine/Methamp Scrn,U Negative (Negative); Barbiturate Screen,Urine Negative (Negative); Benzodiazepines Screen,Urine Negative (Negative); Benzoylecgonine Screen, Ur Negative (Negative); Fentanyl Screen,Urine Negative (Negative); Opiate Screen,Urine Negative (Negative); THC Screen,Urine Negative (Negative)
[2024-07-25 18:42] LABS: Alkaline Phosphatase 81 U/L (46-116)
[2024-07-25 19:00] LABS: Sed Rate (ESR) 4 mm/hr (0-15)
== END 2024-07-25 17:49 | disposition home or self-care (01) ==
LOC: SERX 17:41
PROVIDERS: Emergency Provider Emergency Medicine
DX: F99 Mental disorder, not otherwise specified (principal); E78.5 Hyperlipidemia, unspecified; R51.9 Headache, unspecified; M79.672 Pain in left foot; I10 Essential (primary) hypertension
CPT/HCPCS: 36415; 70450; 71045; 73610; 73630; 80053; 80307; 83735; 84145; 84443; 84484; 85025; 85610; 85652; 85730; 86140; 93005; 99284

== ENCOUNTER 2024-08-22 15:27 | Emergency (ER) | payer SELFPAY ==
--- NOTE | 2024-08-22 15:28 | EDNOTE_ITS ---
Neuro Symptoms Deficit-RME/HPI General Chief Complaint: Chest Pain Stated Complaint: STROKE ALERT Time Seen by Provider: 08/22/24 15:28 Arrival date/time: 08/22/24 15:27 RME / HPI RME / HPI Narrative: DR. OSWALD MAIN ED EVALUATION: 44 year old male presents to the Emergency Department [facility] with complaints of left-sided weakness and slurred speech onset 15-20 minutes ago, about 310 PM today. Patient initially called an ambulance for chest pain but then when they got there he started having left-sided weakness. Patient states he had a stroke 2 weeks ago and was at [facility]. Related Data Previous Rx's ?Medication ?Instructions ?Recorded atorvastatin 80 mg tablet 80 mg PO HS 30 days #30 tabs 06/30/24 duloxetine 30 mg capsule,delayed 30 mg PO QDAY 30 days #30 caps 07/01/24 release (Cymbalta) acetaminophen 500 mg tablet 1,000 mg (2 x 500 mg) PO Q 6H PRN 07/09/24 pain #30 tabs ibuprofen 600 mg tablet 600 mg PO Q6H PRN pain #20 t abs 07/09/24 Allergies Allergy/AdvReac Type Severity Reaction Status Date / Time No Known Allergies Allergy Verified 07/09/24 19:10 Review of Systems Review of Systems Systems Reviewed: All systems reviewed, normal except as documented Narrative Review of Systems: Constitutional: DENIES: fevers; Eyes: DENIES: loss of vision; Head/Ear/Nose: DENIES: loss of hearing. Throat: DENIES: dysphagia. Cardiovascular: DENIES: chest pain, dyspnea, or syncope. Respiratory: DENIES: shortness of breath; Gastrointestinal: DENIES: rectal bleeding or melena. Genitourinary: DENIES: dysuria (painful or difficult urination); Musculoskeletal: DENIES: arthralgia (pain in a joint); Skin: DENIES: rash; Neurological: POSITIVES: left-sided weakness and slurred speech Psychiatric: DENIES: recent major life stressor, emotional problem, illicit drug use or abuse; Endocrinology: DENIES: weight change,; Hematologic/Lymphatic: DENIES: abnormal bruising. Allergic/Immunologic: DENIES: urticaria (hives). Past Medical History Past Medical History CARDIAC: Positive Hypercholesterolemia and Hypertension MUSCULOSKELETAL: Positive Musculoskeletal Disorders Social History SMOKING STATUS: Never smoker SUBSTANCE USE: does not use ALCOHOL: Never ED Exam Narrative Physical exam: Physical Exam: General: The vital signs were reviewed. Seen in ambulance bay slurring speech the patient is non-toxic, in no apparent distress and appears healthy with a patent airway, no respiratory distress and has no apparent circulatory problems. Head & Scalp: Normocephalic, atraumatic. Face: Appears normal and is without lesions, deformity. Ears: Left external pinna appears normal. Right external pinna appears normal. Eyes: The sclera is anicteric. No obvious photophobia. The Left and Right Orbit/Lid/Conjunctiva appears normal without swelling, discoloration or injection. Nose: The nose is without deformity, discharge or tenderness; Throat: Appears normal. The mucous membranes are pink and moist without exudates, redness or mass seen. The tongue appears normal. Neck: The neck is supple and no apparent mass or adenopathy. Chest: The chest wall is normal in size and symmetry and has no chest wall tender ness or crepitus. The patient displays normal ventilator effort without retractions, accessory muscle use and has adequate air movement bilaterally with no wheezes and no rales. Cardiovascular: Regular rate and rhythm; No murmurs, rubs, or gallops; Gastrointestinal: The abdomen appears normal. No obvious hernias or mass. The abdomen is soft and benign, non-distended, with no pain, no guarding and no rebound tenderness. Bowel sounds are present and normal sounding. No CVA tenderness. Genitourinary: Back/Spine: Extremities/Musculoskeletal/lymphatic: The bilateral upper and lower extremities are warm. There is no evidence of arterial insufficiency. There is no evidence of venous insufficiency/edema. The patient spontaneously moves bilateral upper and lower extremities with no pain and no limitation of movement. There is no apparent, injury or trauma. Skin: The skin is warm, dry and intact. No rashes. No petechia. No purpura. No abnormal bruising. The color is appropriate with no cyanosis. Mental status/Psychiatric: Mental status is appropriate for age. The patient has no apparent delusions, visual hallucinations, no apparent audible hallucinations. The patient has no apparent suicidal thoughts/ideation and no apparent homicidal thoughts/ideation. Neurological: The patient is awake, alert, interactive, cordial, cooperative and is or iented to name and situation. The patient follows commands and answers historical question with no impairment. There is no visual disturbance apparent. 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 Care 08/22/24 15:28 Active Continuous Pulse Oximetry NOW Care 08/22/24 15:28 Completed EKG (ED ONLY) *Do not use* NOW Care 08/22/24 15:28 Completed In and Out Catheter NEEDED Care 08/22/24 15:28 Active Insert IV NOW Care 08/22/24 15:28 Active NIH Stroke Scale now Care 08/22/24 15:28 Active NPO NOW Care 08/22/24 15:28 Active Neuro Check Q15MIN Care 08/22/24 15:28 Active Nurse Swallow Screen x1 Care 08/22/24 15:28 Active Consult to Neurology / Tele-Neurology Routine Cons 08/22/24 15:28 Active Diet Regular Diet 08/22/[address] angio stroke protocol Stat Exams 08/22/24 15:[address] stroke protocol Stat Exams 08/22/24 15:28 Completed EKG (ED Only) Stat Exams 08/22/24 15:28 Draft CBC Stat Lab 08/22/24 15:35 Completed Comprehensive Metabolic Panel Stat Lab 08/22/24 15:35 Completed Drug Screen,Urine Stat Lab 08/22/24 16:27 Completed HCG Titer if Positive Stat Lab 08/22/24 15:35 Completed Magnesium Stat Lab 08/22/24 15:35 Completed Partial Thromboplastin Time Stat Lab 08/22/24 15:35 Completed Prothrombin Time with INR Stat Lab 08/22/24 15:35 Completed Troponin I Stat Lab 08/22/24 15:35 Completed Urinalysis Stat Lab 08/22/24 16:27 Completed Urine Culture Stat Lab 08/22/24 15:28 Ordered Ondansetron Inj [Zofran Inj] Med 08/22/24 15:28 Active 4 mg IV Q4HR PRN Oxygen Delivery NOW RT 08/22/24 15:28 Active Vital Signs Vital signs: Vital Signs Temperature 97.6 F 08/22/24 16:00 Pulse Rate 77 08/22/24 16:00 Respiratory Rate 20 08/22/24 16:00 Blood Pressure 107/56 L 08/22/24 16:00 Pulse Oximetry (%) 96 08/22/24 16:00 Oxygen Delivery Method Room Air 08/22/24 16:00 Neuro Symptoms / Deficit MDM Narrative MDM Narrative:: Patient is a 44-year-old gentleman who comes in with acute left hemiparesis. Note he was just here 2 weeks ago with a similar presentation. An extensive workup with the teleneurologist MRIs which came back negative. Dr. Cota the neurologist was consulted. Review of the chart revealed no objective findings consistent with a stroke A stroke alert was called and patient went to the CT scanner had a CT of his head which came back negative CTA of the brain which also came back negative. The teleneurologist Dr. Samuels called discussed the case and we felt this was a functional problem or psychogenic. Medical workup revealed the urine drug screen was negative UA came back in a delayed fashion which was negative he is on the dry side. Comprehensive metabolic panel is essentially negative. And CBC came back with a white count of 7.8 hemoglobin of 14.0. Patient was observed and monitored waiting for the urine to come back and at about 1730 hrs. when in the room patient is alert awake he is feeling much better. He is moving his arm and leg without any problem. He is able to stand and walk with any difficulty. Patient opened up and shared that he is in a rehab and it has been quite difficult he states is a Taoist facility. And is forced him to deal with his life issues. He had no malice he was very kind and even actually prayed for us and thinking the staff are caring for him. Patient was advised to follow-up with his doctor continue with his rehab. Patient's got a place to go and was encouraged to drink plenty of fluids since he is little on the dry side. Patient reports he has a history of using methamphetamine in the past. He is in a rehab program. Lashanda Zavala, am scribing for and in the presence of Dr. Oswald. Patient data External records reviewed:: [facility] previous records (Reviewed last ED visit dated 07/25/24, discharged with the following: Psychiatric problem) Clinical information provided by:: patient and EMS Social determinants that could affect healthcare access:: none Patient has the following chronic illnesses:: Hypertension and hypercholesterolemia. Patient states he had a stroke 2 weeks ago and was at [facility]. How is presenting disease/condition affected by chronic disease/condition?: exacerbated by Evaluation data The following diagnostics were reviewed and interpreted by me:: lab results, radiology exam(s) and EKG tracing(s) (EKG#1: EKG at 1556 hours. Interpreted by me: sinus rhythm, rate 70, no STEMI) Lab and/or radiology exams considered but not ordered:: none Interpretation Summary: See above under MDM narrative. RADIOLOGY Procedure(s): CT angio stroke protocol Accession Number(s): [id number] cc: Mynor Oswald MD; Balaji Ramsey MD~ Examination: CTA carotids with intravenous contrast CTA brain, head with intravenous contrast. 2-D sagittal, coronal reconstructions. 3-D reconstructions. Exam date and time: August 22, 2024 1534 hours INDICATIONS: Stroke alert, onset left-sided facial droop placenta body weakness today CTDI: vol (mGy) 23.3 DLP: (mGycm) 423 Technique: Multiple CTA axial brain, head carotid images post intravenous contrast injection 75 cc, Isovue-[id number]. 2-D sagittal, coronal reconstructions. 3-D reconstructions, 3-D post processing including vascular maximum intensity projection images. Low dose protocols were performed. One or more of the following dose reduction techniques were used; automated exposure control, adjustment of the mA and/or KV according to patient size, use of iterative reconstruction technique. Findings: No significant common carotid carotid bifurcation or internal carotid artery stenoses Dominant left vertebral artery with no critical stenoses Intracranial vertebral arteries basilar artery posterior cerebral branches do fill Petrous juxtasellar supraclinoid portions of the internal carotid arteries demonstrate no stenoses M1 segments middle cerebral arteries middle cerebral artery trifurcation vessels anterior cerebral arteries demonstrate no large vessel occlusions IMPRESSION: No significant neck arterial stenoses No cerebral large vessel arterial occlusions Dictated By: Balaji Ramsey MD -- Procedure(s): CT stroke protocol Accession Number(s): [id number] cc: Mynor Oswald MD; Balaji Ramsye MD~ Examination: CT brain head without contrast. 2-D sagittal coronal reconstructions Date and time of exam:August 22, 2024 1532 hours Comparison July 25, 2024 INDICATIONS: Stroke alert, onset focal neurologic deficit, left-sided facial droop left-sided body weakness today CTDI: vol (mGy):51.1 DLP: (mGycm):988 Technique: Multiple CT axial sections of the brain have been obtained, 5 mm slice thickness. Contrast has not been administered. 2-D sagittal, coronal reconstructions have been obtained Low dose protocols were performed. One or more of the following dose reduction techniques were used; automated exposure control, adjustment of the mA and/or KV according to patient size, use of iterative reconstruction technique. Findings: No significant ventricular enlargement. Intra-axial or extra-axial hemorrhage density is not seen. No mass effect or midline shift Basal cisterns are not remarkable. Fourth ventricle is midline. Cranial vault intact. Impression: Negative for acute hemorrhage, mass effect or midline shift As clinically warranted, brain MRI follow-up would best assess for demyelinating disease, acute ischemic change Dictated By: Balaji Ramsey MD Medications / Prescriptions Medications or Prescriptions considered but not ordered:: none Medication administrations:: Medication Administration History Ondansetron HCl (Ondansetron Inj 2 Mg/Ml Inj 2 Ml) 4 mg IV Q4HR PRN PRN Reason: NAUSEA OR VOMITING Stop: 09/21/24 15:27 see above Consultations Consultation(s) initiated? (list below): No Diagnosis Neuro Differential Diagnosis: subarachnoid hemorrhage, cerebrovascular accident and transient cerebral ischemia Most likely diagnosis given after review of the tests above:: see below Admission Indicated Admission indicated?: not indicated Admission Request Was there a request for admission?: No Disposition Plan Disposition Plan: Discharge Discharge Attestation Discharge Attestation: The patient and all family members were given an opportunity to ask questions and understood the discharge instructions. Discharge instructions specifically effects, indications for sooner follow up or return to the emergency department, and the expected course of current diagnosis. Patient condition: Stable Critical Care Time Critical Care Time Critical Care Time: Yes Total Critical Care Time (min.): 50 Attestation: The high probability of sudden, clinically significant deterioration in the patient?s condition required the highest level of my preparedness to intervene urgently. The services I provided to this patient were to treat and/or prevent clinically significant deterioration. Services included the following: chart data review, reviewing nursing notes and/or old charts, documentation time, funeral pre need consultant collaboration regarding findings and treatment options, medication orders and management, direct patient care, vital sign assessments and ordering, interpreting and reviewing diagnostic studies and lab tests. Aggregate critical care time includes only time during which I was engaged in work directly related to the patient?s care, as described above, whether at bedside or elsewhere in the Emergency Department. It did not include time spent performing other reported procedures or the services of residents, students, nurses or physician assistants. Discharge Plan Plan Patient Disposition: HOME (Self Care) Prescriptions/Referrals Prescriptions/Med Rec: No Action atorvastatin 80 mg tablet 80 mg PO HS 30 Days Qty: 30 2RF duloxetine [Cymbalta] 30 mg capsule,delayed release(DR/EC) 30 mg PO QDAY 30 Days Qty: 30 3RF acetaminophen 500 mg tablet 1,000 mg PO Q6H PRN (Reason: pain) Qty: 30 0RF ibuprofen 600 mg tablet 600 mg PO Q6H PRN (Reason: pain) Qty: 20 0RF Referrals: No Primary/Family,Physician [Primary Care Provider] - In 1 week Problem List Clinical Impression: Hemiparesis, History of methamphetamine abuse, Anxiety Patient/Caregiver Discharge Instructions Additional Instructions: Today we believe your anxiety is causing psychogenic loss of function of your arm and leg. I am thankful that you are in a rehab program getting help for your methamphetamine addiction and dealing with a difficulties of life. Your lab studies and your CT scans were all negative today. I want you to continuing your rehab program. Follow-up with your regular doctor to address any medical problems. Print Language: Solomon Islander Stand Alone Forms: Patient Portal Info Letter
--- NOTE | 2024-08-22 15:28 | EKG_ITS ---
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
[2024-08-22 15:47] LABS: Basophils % (Auto) 1 % (0-2.5); Eosinophils # (Auto) 0.3 Thou/mm3 (0.0-0.5); Eosinophils % (Auto) 4 % (0-10); Hematocrit 40.3 % (41.0-53.0); Immature Granulocytes % (Auto) 1 % (0-0); Immature Granulocytes Auto 0.06 Thou/mm3 (0.00-0.00); Lymphocytes # (Auto) 2.7 Thou/mm3 (1.0-4.8); Lymphocytes % (Auto) 35 % (10-50); Mean Corpuscular HGB Conc 34.7 g/dl (31.0-37.0); Mean Corpuscular Hemoglobin 28.2 pg (25.0-35.0); Mean Corpuscular Volume 81 fL (80-100); Monocytes # (Auto) 0.7 Thou/mm3 (0.0-0.8); Monocytes % (Auto) 9 % (0-12); Neutrophils % (Auto) 51 % (37-80); Nucleated Red Blood Cell % 0 /100 WBC (0); Platelet Count 178 Thou/mm3 (140-440); RDW Standard Deviation 38.9 fL (35.1-43.9); Red Blood Count 4.96 Miln/mm3 (4.50-5.90); White Blood Count 7.8 Thou/mm3 (3.8-10.6)
[2024-08-22 15:56] VITALS: BMI 32.8
[2024-08-22 16:00] VITALS: BP 107/56; PULSE 65; PULSE 70; PULSE 77; RESP 18; RESP 20; RESP 96; TEMP 36.4; O2SAT 96
[2024-08-22 16:05] LABS: Alanine Aminotransferase 49 U/L (10-49); Albumin, Serum 4.2 gm/dL (3.5-5.0); Albumin/Globulin Ratio 1.9 (1.2-2.2); Alkaline Phosphatase 69 U/L (46-116); Anion Gap 7 (7-16); Aspartate Amino Transferase 20 U/L (0-34); BUN/Creatinine Ratio 20 Ratio (12-20); Bilirubin,Total 0.6 mg/dL (0.3-1.2); Blood Urea Nitrogen 16 mg/dL (9-23); Calcium 9.2 mg/dL (8.3-10.6); Calcium (Corrected) 9.2 mg/dL (8.5-10.1); Carbon Dioxide 23.6 mMol/L (20.0-31.0); Chloride 109 mMol/L (98-107); Creatinine (Component) 0.8 mg/dL (0.6-1.3); Globulin 2.2 gm/dL (2.3-3.5); Glucose 116 mg/dL (74-106); Magnesium 1.8 mg/dL (1.6-2.6); Osmolality,Calculated 281 (275-295); Potassium 4.4 mMol/L (3.4-5.1); Sodium 140 mMol/L (136-145); Total Protein 6.4 gm/dL (5.7-8.2); Troponin I < 0.002 ng/mL (0.0-0.045); eGFR > 60 See Note
--- NOTE | 2024-08-22 16:15 | PD.TNEURO ---
Tele Neuro Consultation Consultation Date 08/22/24 Consultation Narrative [facility] Tele[facility]urology Consult [facility] Patient Name:???Yanick Soliz Date of :???1980 Identification Number:??? 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 Given variability in exam and recurrent episodes, strongly suspect functional neurological disorder (FND, conversion disorder). ?As he has had recent negative workup for stroke with similar presentation, there are no additional neurological recommendations at this time. He should continue his medications for vascular risk management. Our recommendations are outlined below. Recommendations: ? Bedside Swallow Eval ? DVT Prophylaxis ? IV Fluids, Normal Saline ? Head of Bed 30 Degrees ? Euglycemia and Avoid Hyperthermia (PRN Acetaminophen) ? Initiate or continue Aspirin 81 MG daily Sign Out: ? Discussed with Emergency Department Provider Advanced Imaging: CTA Head and Neck Completed. LVO:No Patient in not a candidate for TONY Metrics: Last Known Well: 08/22/2024 15:10:00 Dispatch Time: 08/22/2024 15:30:52 Arrival Time: 08/22/2024 15:28:00 Initial Response Time: 08/22/2024 15:33:25Symptoms: chest pain, left sided weakness. Initial patient interaction: 08/22/2024 15:49:53 NIHSS Assessment Completed: 08/22/2024 15:53:48Patient is not a candidate for Thrombolytic. Thrombolytic Medical Decision: 08/22/2024 15:53:49Patient was not deemed candidate for Thrombolytic because of following reasons: other diagnosis suspected chest pain, hx of possible complex migraine vs functional neurological disorder. I personally Reviewed the CT Head and it Showed no acute hemorrhage or mass effect Primary Provider Notified of Diagnostic Impression and Management Plan on: 08/22/2024 16:03:22 History of Present Illness:Patient is a 44 year old Male. Patient was brought by EMS for symptoms of chest pain, left sided weakness. Patient is a 44 year old man presenting to the ED via EMS. He initially called EMS due to chest pain at 15:10, however en route to the ED also started complaining of left sided weakness. He received a total of 486mg aspirin prior to arrival. On review of previous records, he has a history of multiple presentations with either chest pain or headache and left sided weakness in the setting of anxiety or stressful events. Repeated neuroimaging studies have been negative for acute pathology, and CSF evaluation earlier this year was also unrevealing. Past Medical History: ?Hypertension ?Hyperlipidemia ?Coronary Artery Disease ?There is no history of Diabetes Mellitus ?There is no history of Atrial Fibrillation Other PMH:? Recurrent episodes of left sided weakness provoked by pain or stress Medications: No Anticoagulant use? Antiplatelet use:?Yes?aspirin Reviewed EMR for current medications Other Medications Pertinent To Assessment Include: atorvastatin, duloxetine Allergies:? NKDA Social History: Smoking: Yes Alcohol Use: Former Drug Use: No Family History: There is no family history of premature cerebrovascular disease pertinent to this consultation ROS : 14 Points Review of Systems was performed and was negative except mentioned in HPI. Past Surgical History: There Is No Surgical History Contributory To Today?s Visit Examination: BP(108/65),?Pulse(74), 1A: Level of Consciousness - Alert; keenly responsive?+ 0 1B: Ask Month and Age - Both Questions Right?+ 0 1C: Blink Eyes & Squeeze Hands - Performs Both Tasks?+ 0 2: Test Horizontal Extraocular Movements - Normal?+ 0 3: Test Visual Carr - No Visual Loss?+ 0 4: Test Facial Palsy (Use Grimace if Obtunded) - Normal symmetry?+ 0 5A: Test Left Arm Motor Drift - No Drift for 10 Seconds?+ 0 5B: Test Right Arm Motor Drift - No Drift for 10 Seconds?+ 0 6A: Test Left Leg Motor Drift - No Drift for 5 Seconds?+ 0 6B: Test Right Leg Motor Drift - No Drift for 5 Seconds?+ 0 7: Test Limb Ataxia (FNF/Heel-Goldman) - No Ataxia?+ 0 8: Test Sensation - Normal; No sensory loss?+ 0 9: Test Language/Aphasia - Normal; No aphasia?+ 0 10: Test Dysarthria - Normal?+ 0 11: Test Extinction/Inattention - No abnormality?+ 0 NIHSS Score:?0 NIHSS Free Text :?Appears to have slightly more difficulty lifting left leg than right, however when asked says this is due to left knee pain, and with prompting he is able to complete exam without weakness Pre-Morbid Modified Stephenson Scale:0 Points = No symptoms at all Spoke with :?Dr. Lyles This consult was conducted in real time using interactive audio and video technology. Patient was informed of the technology being used for this visit and agreed to proceed. Patient located in hospital and provider located at home/office setting. Patient is being evaluated for possible acute neurologic impairment and high probability of imminent or life-threatening deterioration. I spent total of 35 minutes providing care to this patient, including time for face to face visit via telemedicine, review of medical records, imaging studies and discussion of findings with providers, the patient and/or family. Dr Vidhya Samuels [facility] For Inpatient follow-up with [facility] physician please call [facility] at . As we are not an outpatient service for any post hospital discharge needs please contact the hospital for assistance. If you have any questions for the [facility] physicians or need to reconsult for clinical or diagnostic changes please contact us via [facility] at .
[2024-08-22 16:25] LABS: Partial Thromboplastin Time 22.8 Seconds (22.0-36.0); Prothrombin Time 10.9 Seconds (9.0-12.2)
[2024-08-22 16:43] VITALS: BP 107/56; PULSE 65; RESP 15; TEMP 36.7; O2SAT 97
[2024-08-22 16:57] LABS: Collection Type, Urine Catheter; Squamous Epithelial Cell,Urine 0 /hpf (0-5)
[2024-08-22 17:15] LABS: Bilirubin,Urine Negative (Negative); Blood,Urine Negative (Negative); Clarity,Urine Clear (Clear/Hazy); Color,Urine Lt-Yellow (Lt Yel-Yel); Glucose, Urine Negative (Negative); Ketones,Urine Negative (Negative); Leukocyte Esterase,Urine Negative (Negative); Nitrite,Urine Negative (Negative); PH,Urine 6.5 (5.0-7.0); Protein,Urine Negative (Neg - Trace); RBC,Urine < 1 /hpf (0-3); Specific Gravity,Urine 1.034 (1.001-1.035); Urobilinogen,Urine Negative mg/dL (0.0-1.0); WBC,Urine < 1 /hpf (0-5)
[2024-08-22 17:24] LABS: Amphetamine/Methamp Scrn,U Negative (Negative); Barbiturate Screen,Urine Negative (Negative); Benzodiazepines Screen,Urine Negative (Negative); Benzoylecgonine Screen, Ur Negative (Negative); Fentanyl Screen,Urine Negative (Negative); Opiate Screen,Urine Negative (Negative); THC Screen,Urine Negative (Negative)
[2024-08-22 18:47] VITALS: BP 128/79; PULSE 84; RESP 20; TEMP 36.7; O2SAT 98
[2024-08-22 19:07] VITALS: BP 125/76; PULSE 76; RESP 18; TEMP 36.8; O2SAT 98
== END 2024-08-22 19:08 | disposition home or self-care (01) ==
PROVIDERS: Emergency Provider Emergency Medicine
DX: G81.94 Hemiplegia, unspecified affecting left nondominant side (principal); F41.9 Anxiety disorder, unspecified; F15.10 Other stimulant abuse, uncomplicated; R47.81 Slurred speech; R07.9 Chest pain, unspecified
CPT/HCPCS: 36415; 70450; 70496; 70498; 80053; 80307; 81001; 83735; 84484; 84703; 85025; 85610; 85730; 87086; 93005; 99291; A4649; Q9967